=== PATIENT | male | born 1960 | race Caucasian/White ===

== ENCOUNTER → 2018-11-08 | Outpatient (CLI) | payer OTHER ==
[~2018-11-08] MED LIST: ACET325 PO; BIOTIN2500 MCG PO; Bactrim Ds Tab1 EACH PO; CEPH500 PO; CHLO25 PO; CHOL10002 PO; DOCU100 PO; DULO30 PO; FERR325 PO; FERSU300 PO; FOLI1 PO; GABA300 PO; GABA800 PO; HYDACE5 PO; HYDCOR1TOA TOP; IBUP600 PO; IBUP800 PO; IRON150C PO; LISI5 PO; Lisinopril2.5 MG PO; MAGOXI400 PO; MELO7.5 PO; NICO21TP TD; OMEP20ER PO; OXYC30 PO; POTCHL10ER PO; RXCEPH500 PO; THIA100 PO; TRAZ100 PO; WARF5 PO
[2018-11-08 17:58] LABS: BASOPHILS ABSOLUTE AUTO 0.06 K/mm3 (0.00-0.23); BASOPHILS PERCENT AUTO 1 % (0-2); EOSINOPHILS ABSOLUTE AUTO 0.24 K/mm3 (0.00-0.68); EOSINOPHILS PERCENT AUTO 4 % (0-6); Hematocrit 49.9 % (37.0-53.0); Hemoglobin 16.5 g/dL (13.5-17.5); IMMATURE GRAN ABSOLUTE AUTO 0.01 K/mm3 (0.00-0.10); IMMATURE GRAN PERCENT AUTO 0 % (0-1); LYMPHOCYTES ABSOLUTE AUTO 2.19 K/mm3 (0.84-5.20); LYMPHOCYTES PERCENT AUTO 40 % (21-46); MONOCYTES ABSOLUTE AUTO 0.37 K/mm3 (0.16-1.47); MONOCYTES PERCENT AUTO 7 % (4-13); Mean Corpuscular HGB 31.2 pg (26.0-34.0); Mean Corpuscular HGB Conc 33.1 g/dL (31.5-36.5); Mean Corpuscular Volume 94 fL (80-100); Mean Platelet Volume 9.1 fL (9.1-12.4); NEUTROPHILS PERCENT AUTO 48 % (41-73); Platelet Count 184 K/mm3 (150-400); RDW Coefficient Variation 15.2 % (11.7-14.2); RDW Standard Deviation 52.8 fL (35.1-46.3); Red Blood Cell Count 5.29 M/mm3 (4.30-5.90); White Blood Cell Count 5.47 K/mm3 (4.00-11.30)
[2018-11-08 18:19] LABS: Albumin, Blood 3.3 g/dL (3.4-5.0); Anion Gap 7 mmol/L (6-16); Blood Urea Nitrogen 3 mg/dL (8-24); CO2, Blood 34 mmol/L (21-32); Calcium, Blood 8.1 mg/dL (8.5-10.1); Chloride, Blood 105 mmol/L (98-108); Creatinine, Blood 0.74 mg/dL (0.60-1.20); Glomerular Filtration Rate >60 (60-); Glucose, Blood 85 mg/dL (70-99); Phosphorus, Blood 4.2 mg/dL (2.5-4.9); Potassium, Blood 3.3 mmol/L (3.5-5.5); Sodium, Blood 146 mmol/L (136-145)
== END ==
LOC: LAB 13:00 → LAB SHORT 13:00
PROVIDERS: Nurse Practitioner Family
DX: F10.10 Alcohol abuse, uncomplicated (principal)
CPT/HCPCS: 80069; 85025

== ENCOUNTER → 2019-04-11 | Outpatient (CLI) | payer OTHER ==
[~2019-04-11] MED LIST changes: +FAMO20 PO; +THERA M PLUS T1 EACH PO
[2019-04-11 18:18] LABS: Alanine Aminotransfer (ALT/SGP 13 U/L (12-78); Albumin, Blood 2.7 g/dL (3.4-5.0); Albumin/Globulin Ratio 0.6 (0.8-1.8); Alk Phos 114 U/L (50-136); Anion Gap 10 mmol/L (6-16); Aspartate Aminotrans (AST/SGOT 21 U/L (12-37); Bilirubin, Direct 0.2 mg/dL (0.0-0.3); Bilirubin, Indirect 0.5 mg/dL (0.1-0.7); Bilirubin, Total 0.7 mg/dL (0.1-1.0); Blood Urea Nitrogen 7 mg/dL (8-24); CO2, Blood 35 mmol/L (21-32); Calcium, Blood 8.6 mg/dL (8.5-10.1); Chloride, Blood 83 mmol/L (98-108); Globulin, Blood 4.5 g/dL (2.2-4.0); Glomerular Filtration Rate >60 (60-); Glucose, Blood 89 mg/dL (70-99); Phosphorus, Blood 3.1 mg/dL (2.5-4.9); Potassium, Blood 2.8 mmol/L (3.5-5.5); Sodium, Blood 128 mmol/L (136-145); Total Protein, Blood 7.2 g/dL (6.4-8.2)
[2019-04-11 18:29] LABS: BASOPHILS ABSOLUTE AUTO 0.06 K/mm3 (0.00-0.23); BASOPHILS PERCENT AUTO 1 % (0-2); EOSINOPHILS ABSOLUTE AUTO 0.06 K/mm3 (0.00-0.68); EOSINOPHILS PERCENT AUTO 1 % (0-6); Hematocrit 34.3 % (37.0-53.0); Hemoglobin 12.2 g/dL (13.5-17.5); IMMATURE GRAN ABSOLUTE AUTO 0.06 K/mm3 (0.00-0.10); IMMATURE GRAN PERCENT AUTO 1 % (0-1); LYMPHOCYTES ABSOLUTE AUTO 1.94 K/mm3 (0.84-5.20); LYMPHOCYTES PERCENT AUTO 18 % (21-46); MONOCYTES ABSOLUTE AUTO 1.23 K/mm3 (0.16-1.47); MONOCYTES PERCENT AUTO 11 % (4-13); Mean Corpuscular HGB 34.3 pg (26.0-34.0); Mean Corpuscular HGB Conc 35.6 g/dL (31.5-36.5); Mean Corpuscular Volume 96 fL (80-100); NEUTROPHILS ABSOLUTE AUTO 7.67 K/mm3 (1.96-9.15); NEUTROPHILS PERCENT AUTO 70 % (41-73); Platelet Count 309 K/mm3 (150-400); RDW Coefficient Variation 13.5 % (11.7-14.2); RDW Standard Deviation 47.7 fL (35.1-46.3); Red Blood Cell Count 3.56 M/mm3 (4.30-5.90); White Blood Cell Count 11.02 K/mm3 (4.00-11.30)
[2019-04-11 19:03] LABS: Alanine Aminotransfer (ALT/SGP 15 U/L (12-78); Albumin, Blood 2.6 g/dL (3.4-5.0); Albumin/Globulin Ratio 0.5 (0.8-1.8); Alk Phos 117 U/L (50-136); Anion Gap 13 mmol/L (6-16); Aspartate Aminotrans (AST/SGOT 20 U/L (12-37); Bilirubin, Total 0.7 mg/dL (0.1-1.0); Blood Urea Nitrogen 6 mg/dL (8-24); Bun/Creatinine Ratio 8.5 (12.0-20.0); CO2, Blood 31 mmol/L (21-32); Calcium, Blood 8.6 mg/dL (8.5-10.1); Chloride, Blood 85 mmol/L (98-108); Creatinine, Blood 0.71 mg/dL (0.60-1.20); Globulin, Blood 4.8 g/dL (2.2-4.0); Glomerular Filtration Rate >60 (60-); Glucose, Blood 85 mg/dL (70-99); Potassium, Blood 2.8 mmol/L (3.5-5.5); Sodium, Blood 129 mmol/L (136-145); Total Protein, Blood 7.4 g/dL (6.4-8.2)
== END | disposition home or self-care (01) ==
LOC: LAB 11:45 → LAB SHORT 11:45
PROVIDERS: Internal Medicine Nephrology; Nurse Practitioner Family
DX: N18.2 Chronic kidney disease, stage 2 (mild) (principal); D63.1 Anemia in chronic kidney disease; D75.1 Secondary polycythemia; R76.9 Abnormal immunological finding in serum, unspecified; R94.5 Abnormal results of liver function studies; R94.6 Abnormal results of thyroid function studies; B18.2 Chronic viral hepatitis C
CPT/HCPCS: 80053; 82248; 83735; 84100; 85018; 85025

== ENCOUNTER → 2019-04-18 | Outpatient (CLI) | payer OTHER ==
[2019-04-18 18:06] LABS: BASOPHILS ABSOLUTE AUTO 0.05 K/mm3 (0.00-0.23); BASOPHILS PERCENT AUTO 1 % (0-2); EOSINOPHILS PERCENT AUTO 1 % (0-6); Hematocrit 30.3 % (37.0-53.0); Hemoglobin 9.9 g/dL (13.5-17.5); IMMATURE GRAN ABSOLUTE AUTO 0.03 K/mm3 (0.00-0.10); IMMATURE GRAN PERCENT AUTO 0 % (0-1); LYMPHOCYTES ABSOLUTE AUTO 1.58 K/mm3 (0.84-5.20); LYMPHOCYTES PERCENT AUTO 20 % (21-46); MONOCYTES ABSOLUTE AUTO 0.44 K/mm3 (0.16-1.47); MONOCYTES PERCENT AUTO 6 % (4-13); Mean Corpuscular HGB 33.8 pg (26.0-34.0); Mean Corpuscular HGB Conc 32.7 g/dL (31.5-36.5); Mean Platelet Volume 9.9 fL (9.1-12.4); NEUTROPHILS ABSOLUTE AUTO 5.54 K/mm3 (1.96-9.15); NEUTROPHILS PERCENT AUTO 72 % (41-73); Platelet Count 402 K/mm3 (150-400); RDW Coefficient Variation 14.2 % (11.7-14.2); RDW Standard Deviation 54.1 fL (35.1-46.3); Red Blood Cell Count 2.93 M/mm3 (4.30-5.90); White Blood Cell Count 7.74 K/mm3 (4.00-11.30)
[2019-04-18 18:34] LABS: Mean Corpuscular Volume 103 fL (80-100)
[2019-04-18 19:02] LABS: Alanine Aminotransfer (ALT/SGP 21 U/L (12-78); Albumin, Blood 2.8 g/dL (3.4-5.0); Albumin/Globulin Ratio 0.7 (0.8-1.8); Alk Phos 101 U/L (50-136); Anion Gap 6 mmol/L (6-16); Aspartate Aminotrans (AST/SGOT 26 U/L (12-37); Bilirubin, Total 0.3 mg/dL (0.1-1.0); Blood Urea Nitrogen 6 mg/dL (8-24); Bun/Creatinine Ratio 6.8 (12.0-20.0); CO2, Blood 28 mmol/L (21-32); Calcium, Blood 8.6 mg/dL (8.5-10.1); Chloride, Blood 102 mmol/L (98-108); Creatinine, Blood 0.88 mg/dL (0.60-1.20); Globulin, Blood 3.8 g/dL (2.2-4.0); Glomerular Filtration Rate >60 (60-); Glucose, Blood 71 mg/dL (70-99); Potassium, Blood 4.6 mmol/L (3.5-5.5); Sodium, Blood 136 mmol/L (136-145); Total Protein, Blood 6.6 g/dL (6.4-8.2)
== END ==
LOC: LAB 17:51 → LAB SHORT 17:51
PROVIDERS: Nurse Practitioner Family
DX: E55.9 Vitamin D deficiency, unspecified (principal); E87.6 Hypokalemia; D64.9 Anemia, unspecified; I10 Essential (primary) hypertension; E83.42 Hypomagnesemia
CPT/HCPCS: 80053; 85025

== ENCOUNTER 2019-10-08 15:50 | Inpatient (IN) | payer OTHER ==
[~2019-10-08] VITALS: Ht 175.3 cm; Wt 69.7 kg
[2019-10-08 16:08] LABS: Source, Urine Catheter
[2019-10-08 16:10] LABS: Calcium, Ionized (POC) 1.05 mmol/L (1.10-1.46); Chloride (POC) 97 mmol/L (98-108); Creatinine (POC) 1.1 mg/dL (0.8-1.3); Glucose (ISTAT POC) 120 mg/dL (70-99); Hemoglobin (POC) 13.6 g/dL (13.5-17.5); Potassium (POC) 2.9 mmol/L (3.5-5.5); Sodium (POC) 142 mmol/L (135-148); Total CO2 (POC) 21 mmol/L (21-32)
[2019-10-08 16:11] LABS: PCO2 Arterial 68.5 mmHg (35-45); PO2 Arterial 96.4 mmHg (80-100)
[2019-10-08 16:12] LABS: pH Blood Arterial 7.04 (7.35-7.45)
[2019-10-08 16:24] LABS: BASOPHILS ABSOLUTE AUTO 0.08 K/mm3 (0.00-0.23); BASOPHILS PERCENT AUTO 1 % (0-2); EOSINOPHILS ABSOLUTE AUTO 0.02 K/mm3 (0.00-0.68); EOSINOPHILS PERCENT AUTO 0 % (0-6); Hemoglobin 12.9 g/dL (13.5-17.5); IMMATURE GRAN ABSOLUTE AUTO 0.26 K/mm3 (0.00-0.10); IMMATURE GRAN PERCENT AUTO 2 % (0-1); LYMPHOCYTES ABSOLUTE AUTO 0.53 K/mm3 (0.84-5.20); LYMPHOCYTES PERCENT AUTO 3 % (21-46); MONOCYTES ABSOLUTE AUTO 0.53 K/mm3 (0.16-1.47); MONOCYTES PERCENT AUTO 3 % (4-13); Mean Corpuscular HGB 34.2 pg (26.0-34.0); Mean Corpuscular HGB Conc 32.3 g/dL (31.5-36.5); Mean Corpuscular Volume 106 fL (80-100); Mean Platelet Volume 10.7 fL (9.1-12.4); NEUTROPHILS ABSOLUTE AUTO 14.87 K/mm3 (1.96-9.15); NEUTROPHILS PERCENT AUTO 91 % (41-73); Platelet Count 128 K/mm3 (150-400); RDW Coefficient Variation 14.5 % (11.7-14.2); RDW Standard Deviation 56.8 fL (35.1-46.3); Red Blood Cell Count 3.77 M/mm3 (4.30-5.90); White Blood Cell Count 16.29 K/mm3 (4.00-11.30)
[2019-10-08 16:44] LABS: Bilirubin, Urine Neg (Neg); Blood, Urine 5+ (Neg); Glucose Qualitative, Urine Neg (Neg); Ketones, Urine 2+ (Neg); Leukocyte Esterase, Urine Neg (Neg); Nitrite, Urine Neg (Neg); Protein, Urine 3+ (Neg); Urobilinogen, Urine NORM (Normal)
[2019-10-08 16:53] LABS: Appearance, Urine Clear (Clear); Color, Urine Yellow (P-Yellow)
[2019-10-08 16:55] LABS: Alanine Aminotransfer (ALT/SGP 45 U/L (12-78); Albumin, Blood 2.4 g/dL (3.4-5.0); Albumin/Globulin Ratio 0.5 (0.8-1.8); Alk Phos 183 U/L (50-136); Anion Gap 23 mmol/L (6-16); Aspartate Aminotrans (AST/SGOT 253 U/L (12-37); Blood Urea Nitrogen 4 mg/dL (8-24); Bun/Creatinine Ratio 3.8 (12.0-20.0); CO2, Blood 17 mmol/L (21-32); Calcium, Blood 7.9 mg/dL (8.5-10.1); Chloride, Blood 101 mmol/L (98-108); Creatinine, Blood 1.06 mg/dL (0.60-1.20); Ethanol (Alcohol), Blood, Med <3 mg/dL; Globulin, Blood 4.5 g/dL (2.2-4.0); Glomerular Filtration Rate >60 (60-); Glucose, Blood 114 mg/dL (70-99); Magnesium, Blood 1.8 mg/dL (1.6-2.4); Potassium, Blood 2.9 mmol/L (3.5-5.5); Sodium, Blood 141 mmol/L (136-145); Total Protein, Blood 6.9 g/dL (6.4-8.2); Troponin I 0.085 ng/mL (0.000-0.040)
[2019-10-08 16:55] LABS: Amorphous Light (0-Heavy); Bacteria Few /hpf; Squamous Epithelial Cells Few /hpf (Few); White Blood Cells, Urine 0-2 /hpf (0-5)
[2019-10-08 17:00] LABS: U Amphetamine Screen Not Detected; U Barbituate Screen Not Detected; U Benzodiazapine Screen Not Detected; U Cannabinoids Screen DETECTED; U Cocaine Screen Not Detected; U Methadone Screen Not Detected; U Methamphetamine Screen Not Detected; U Opiates Screen Not Detected; U Phencyclidine Screen Not Detected
[2019-10-08 17:01] LABS: U Buprenorphine Screen Not Detected; U Oxycodone Screen Not Detected; U Propoxyphene Screen Not Detected
[2019-10-08 17:28] LABS: PCO2 Arterial 64.5 mmHg (35-45); PO2 Arterial 82.3 mmHg (80-100)
[2019-10-08 17:29] LABS: pH Blood Arterial 7.16 (7.35-7.45)
[2019-10-08 19:54] LABS: Base Excess Venous -4.5 mmol/L; Bicarbonate Venous 19.3 mmol/L (24.0-30.0); PCO2 Venous 56.7 mmHg (38-42); PO2 Venous 34.3 mmHg (38-42); pH Blood Venous 7.22 (7.34-7.37)
--- NOTE | 2019-10-08 21:00 | NUR ---
RECTAL TUBE PLACED
--- NOTE | 2019-10-08 21:00 | NUR ---
PT ARRIVED TO ICU @ 1856, PT INTUBATED, NOT ON SEDATION. VENT SET TO AC 16/450/5/80%, 02 SATURATIONS ABOVE 90%, RR 30-40'S, HR 140'S AND BP 91/76. PT OPENS EYES TO NOXIOUS STIMULI, MOVES ALL EXTREMETIES, REACHES FOR ETT. RESTRAINTS APPLIED AFTER TRANSFER TO ICU BED. SKIN IS COOL TO THE TOUCH. DR BENNETT TO ROOM AT 1915 UPDATED ON PTS STATUS, LABS, CURRENT MEDICATIONS. 40 MEQ POTASSIUM PER TUBE, PRECEDEX DRIP, PROPOFOL, C. DIFF STOOL SPECIMEN AND VBG ORDERED. AT APPROX 1945 BP DECREASED TO 69/51, 1L NS BOLUS AND NEOSYNEPHRINE ORDERED. PT RESPONDED WELL TO FLUIDS, NEOSYNEPHRINE NOT STARTED AT THIS TIME.
--- NOTE | 2019-10-08 23:45 | NUR ---
DR BENNETT TO ROOM @ 2200, UPDATED ON PTS STATUS, BP REMAINS STABLE, PT REMAINS TACHYCARDIC AND TACHYPNEIC, PT BECOMES AGITATED WITH NURSING CARE, 4MG IV ATIVAN X1 ORDERED WITH SOME IMPROVEMENT NOTICED. AT 2230 PROPOFOL WAS INCREASED TO 20, BP DROPPED TO 59/49, DR BENNETT IN ROOM, PROPOFOL ORDERED TO SB, 1L LR BOLUS ORDERED AND NEOSYNEPHRINE INITIATED. CENTRAL LINE TO R FEMORAL PLACED BY DR BENNETT, LEVOPHED ORDERED. ORDERS TO TITRATE NEOSYNEPHRINE DOWN BEFORE LEVO. 50mcg FENTANYL Q2H PRN FOR PAIN/DISCOMFORT/VENT INTOLERENCE ORDERED.
--- NOTE | 2019-10-09 01:00 | NUR ---
PT NOT TOLERATING VENT, COMING OFF OF BED, PULLING AT RESTRAINTS AND REACHING FOR ET TUBE. PRN FENTANYL PROVIDED, PROPOFOL STARTED AT 10.
[2019-10-09 01:07] LABS: Troponin I 0.332 ng/mL (0.000-0.040)
[2019-10-09 04:23] LABS: Hematocrit 33.2 % (37.0-53.0); Hemoglobin 11.2 g/dL (13.5-17.5); Mean Corpuscular HGB 34.9 pg (26.0-34.0); Mean Corpuscular HGB Conc 33.7 g/dL (31.5-36.5); Platelet Count 102 K/mm3 (150-400); RDW Coefficient Variation 14.5 % (11.7-14.2); RDW Standard Deviation 54.4 fL (35.1-46.3); Red Blood Cell Count 3.21 M/mm3 (4.30-5.90); White Blood Cell Count 13.34 K/mm3 (4.00-11.30)
[2019-10-09 04:24] LABS: Mean Corpuscular Volume 103 fL (80-100)
[2019-10-09 04:40] LABS: Alanine Aminotransfer (ALT/SGP 32 U/L (12-78); Albumin, Blood 1.9 g/dL (3.4-5.0); Albumin/Globulin Ratio 0.5 (0.8-1.8); Alk Phos 119 U/L (50-136); Anion Gap 17 mmol/L (6-16); Aspartate Aminotrans (AST/SGOT 135 U/L (12-37); Bilirubin, Total 1.4 mg/dL (0.1-1.0); Blood Urea Nitrogen 3 mg/dL (8-24); Bun/Creatinine Ratio 3.9 (12.0-20.0); CO2, Blood 21 mmol/L (21-32); Calcium, Blood 6.7 mg/dL (8.5-10.1); Chloride, Blood 109 mmol/L (98-108); Creatinine, Blood 0.77 mg/dL (0.60-1.20); Globulin, Blood 3.7 g/dL (2.2-4.0); Glomerular Filtration Rate >60 (60-); Glucose, Blood 53 mg/dL (70-99); Potassium, Blood 2.8 mmol/L (3.5-5.5); Sodium, Blood 147 mmol/L (136-145); Total Protein, Blood 5.6 g/dL (6.4-8.2)
[2019-10-09 05:30] LABS: Adenovirus Not Detected (NOT DETECT); Bordetella pertussis Not Detected (NOT DETECT); Chlamydophila pneumoniae Not Detected (NOT DETECT); Coronavirus 229E Not Detected (NOT DETECT); Coronavirus HKU1 Not Detected (NOT DETECT); Coronavirus NL63 Not Detected (NOT DETECT); Coronavirus OC43 Not Detected (NOT DETECT); Human Metapneumovirus Not Detected (NOT DETECT); Human Rhinovirus/Enterovirus Not Detected (NOT DETECT); Influenza A Not Detected (NOT DETECT); Influenza A/2009-H1 Not Detected (NOT DETECT); Influenza A/H1 Not Detected (NOT DETECT); Influenza A/H3 Not Detected (NOT DETECT); Influenza B Not Detected (NOT DETECT); Mycoplasma pneumoniae Not Detected (NOT DETECT); Parainfluenza Virus 1 Not Detected (NOT DETECT); Parainfluenza Virus 2 Not Detected (NOT DETECT); Parainfluenza Virus 3 Not Detected (NOT DETECT); Parainfluenza Virus 4 Not Detected (NOT DETECT); Respiratory Syncytial Virus Not Detected (NOT DETECT)
--- NOTE | 2019-10-09 05:53 | NUR ---
SHIFT SUMMARY PT REMAINS INTUBATED AND SEDATED, AGITATED AT TIMES, OPENS EYES BUT DOES NOT FOLLOW DIRECTIONS, PERRLA. PT HAS GROSS MOVEMENT OF ALL EXTREMITIES, REACHES FOR ET TUBE AT TIMES. VENT SET TO AC 16/450/5/65%, 02 SATURATIONS MAINTAINED ABOVE 90%, RESPIRATORY RATE DECREASED TO 20-30. HR DECREASED TO 100-110, PT REMAINS ON LEVO AND NEOSYNEPHRINE GTTS (SEE FLOWSHEET). RECTAL TUBE INSERTED THIS SHIFT WITH MINIMAL LIQUID BROWN STOOL, C. DIFF NEGATIVE. PIÑA REMAINS IN PLACE DRAINING CLEAR YELLOW TO ORANGE URINE. EXTREMITIES REMAIN COOL, TMAX THIS SHIFT 100.9. CENTRAL LINE PLACED THIS SHIFT TO R FEMORAL, INFUSING.
--- NOTE | 2019-10-09 06:30 | NUR ---
CALL TO DR BENNETT REGARDING MORNING LABS (POTASSIUM, LACTIC ACID, LIVER ENZYMES), UPDATED ON PRN FENTANYL NEEDS, GTT RATES, AND BP. ADD ON ACETAMINOPHEN AND SALICYLATE LABS ORDERED. 1L LACTATED RINGERS, 20 MEQ POTASSIUM CHLORIDE X1 NOW, 40 MEQ POTASSIUM PT X2 (0700, 1100) ORDERED. ABX ORDERS TO BE REVIEWED.
[2019-10-09 07:00] LABS: Acetaminophen, Random 3.1 ug/mL (10.0-30.0); Salicylate 2.4 mg/dL (2.8-20.0)
[2019-10-09 08:32] LABS: Troponin I 0.538 ng/mL (0.000-0.040)
[2019-10-09 10:37] LABS: Base Excess Venous -4.8 mmol/L; Bicarbonate Venous 20.6 mmol/L (24.0-30.0); PCO2 Venous 37.8 mmHg (38-42); PO2 Venous 55.2 mmHg (38-42); pH Blood Venous 7.35 (7.34-7.37)
--- NOTE | 2019-10-09 13:50 | NUR ---
PT ASSESSED AT 0715 THIS AM. GTT'S REVIEWED W ALEXUS RN AT BEDSIDE. PROPOFOL AT 40MCG, PRECEDEX AT 0.7MCG, NEOSYNEPHRINE AT 40MCG, LEVOPHED AT 20MCG. BICARB GTT AT 75CC/HR. LR BOLUS, IV K+, PT K+, GIVEN PER DR BENNETT ORDERS. ABLE TO TITRATE LEVOPHED DOWN TO 15MCG, AND LALA DOWN TO 20MCG SOON AFTER BOLUS STARTED. DR BENNETT AT BEDSIDE AT 0800. BICARB DC'D AND ALLA TITRATED OFF PER HIS ORDERS. DR BENNETT GIVEN UPDATE INCLUDING LOW BS. 1 AMP D50 IV GIVEN FOR HYPOGLYCEMIA; TUBE FEEDINGS TO START TODAY. TEMP 101.3 THIS AM; SPUTUM SENT. PT POS BLOOD CX; VANCO AND ZOSYN STARTED. TROPONIN ELEVATED;DR NOTIFIED. PT DOES BECOME AGITATED WITH TURNS AND ORAL CARE; MOVES ARMS STRONGLY TOWARDS FACE. DOES NOT OPEN EYES OR FOLLOW DIRECTIONS. ETT ADVANCED 2CM BY RT PER DR BENNETT ORDERS. NOW AT 26CM AT LIP. EEG COMPLETED. WILL CONTINUE TO TITRATE LEVOPHED AND SEDATION DOWN TOLERATED.
--- NOTE | 2019-10-09 14:24 | NUR ---
LEVOPHED DECREASED TO 10MCG. NGT DC'D AND OG TUBE PLACED PER PROTOCOL. VITAL HIGH PROTIEN TUBE FEEDING STARTED AT 25CC/HR
[2019-10-09 16:11] LABS: Base Excess Venous -1.1 mmol/L; Bicarbonate Venous 23.4 mmol/L (24.0-30.0); PCO2 Venous 39.7 mmHg (38-42); PO2 Venous 55.6 mmHg (38-42); pH Blood Venous 7.39 (7.34-7.37)
[2019-10-09 16:23] LABS: Anion Gap 13 mmol/L (6-16); Blood Urea Nitrogen 3 mg/dL (8-24); Bun/Creatinine Ratio 4.7 (12.0-20.0); CO2, Blood 24 mmol/L (21-32); Calcium, Blood 6.9 mg/dL (8.5-10.1); Chloride, Blood 107 mmol/L (98-108); Creatinine, Blood 0.64 mg/dL (0.60-1.20); Glomerular Filtration Rate >60 (60-); Glucose, Blood 106 mg/dL (70-99); Potassium, Blood 3.3 mmol/L (3.5-5.5); Sodium, Blood 144 mmol/L (136-145)
--- NOTE | 2019-10-09 18:27 | NUR ---
LEVOPHED INCREASED FROM 5MCG TO 8MCG FOR SBP 70'S, MAP 59. NSR W RATE 90'S. PT WELL SEDATED, GRIMACES AND MOVES UPPER EXT W ANY NOXIOUS STIMULI. 0 RESIDUAL; APPEARS TO BE TOLERATING TUBE FEEDING WELL. TEMP 98.6, WARM BLANKET GIVEN. SUFFICIENT URINE OUTPUT TODAY. K+ DOWN OG GIVEN PER DR BENNETT ORDERS. LACTIC ACID TENDING DOWN.
--- NOTE | 2019-10-09 20:00 | NUR ---
ASSUMPTION OF CARE ASSUMED CARE OF PT AT 1900. PT INTUBATED AND SEDATED, VENT SET TO AC 16/450/5/25%, 02 SATURATIONS ABOVE 95% AND RESPIRATIONS 25 PER MINUTE, HR NSR 80'S-90'S, MAPS MAINTAINED ABOVE 65 ON 8 OF LEVO, NEOSYNEPHRINE ON SB. PT APPEARS COMFORTABLE BUT BECOMES AGITATED WITH NURSING CARE, PRECEDEX @ 0.7 AND PROPOFOL @ 40, PT CALMS QUICKLY WITH REST. CENTRAL LINE IN PLACE, DRESSING C/D/I, MEDICATIONS INFUSING. RECTAL TUBE IN PLACE, MINIMAL OUTPUT. PIÑA IN PLACE DRAINING ORANGE URINE. OG WITH CONTINUOUS TF @ 25ml/hr, LOW RESIDUALS.
--- NOTE | 2019-10-10 01:00 | NUR ---
NEURO STATUS DURING BEDBATH PT BECAME AGITATED, REACHING FOR ETT, NOT FOLLOWING DIRECTIONS BUT ANSWERING YES/NO QUESTIONS. PT SHOOK HEAD YES WHEN ASKED IF HE WANTED ETT OUT AND IF HE WAS IN PAIN. PT REPORTS THROAT PAIN BUT DENIES ANY OTHER PAIN. PRN FENTANYL PROVIDED.
[2019-10-10 04:49] LABS: Hemoglobin 10.3 g/dL (13.5-17.5); Mean Corpuscular HGB 35.3 pg (26.0-34.0); Mean Corpuscular HGB Conc 34.3 g/dL (31.5-36.5); Mean Corpuscular Volume 103 fL (80-100); Mean Platelet Volume 10.9 fL (9.1-12.4); Platelet Count 99 K/mm3 (150-400); RDW Coefficient Variation 14.7 % (11.7-14.2); RDW Standard Deviation 55.4 fL (35.1-46.3); Red Blood Cell Count 2.92 M/mm3 (4.30-5.90); White Blood Cell Count 13.17 K/mm3 (4.00-11.30)
[2019-10-10 05:10] LABS: Alanine Aminotransfer (ALT/SGP 21 U/L (12-78); Albumin, Blood 2.1 g/dL (3.4-5.0); Albumin/Globulin Ratio 0.7 (0.8-1.8); Alk Phos 73 U/L (50-136); Anion Gap 4 mmol/L (6-16); Aspartate Aminotrans (AST/SGOT 58 U/L (12-37); Blood Urea Nitrogen 5 mg/dL (8-24); Bun/Creatinine Ratio 7.6 (12.0-20.0); CO2, Blood 32 mmol/L (21-32); Calcium, Blood 7.1 mg/dL (8.5-10.1); Chloride, Blood 111 mmol/L (98-108); Creatinine, Blood 0.66 mg/dL (0.60-1.20); Globulin, Blood 3.2 g/dL (2.2-4.0); Glomerular Filtration Rate >60 (60-); Glucose, Blood 121 mg/dL (70-99); Potassium, Blood 3.2 mmol/L (3.5-5.5); Sodium, Blood 147 mmol/L (136-145); Total Protein, Blood 5.3 g/dL (6.4-8.2)
[2019-10-10 05:12] LABS: BAND PERCENT MAN 20 % (0-8); BASOPHILS PERCENT MAN 0 % (0-2); EOSINOPHILS PERCENT MAN 0 % (0-6); LYMPHOCYTES ABSOLUTE MAN 0.39 K/mm3 (0.84-5.20); LYMPHOCYTES PERCENT MAN 3 % (21-46); MONOCYTES ABSOLUTE MAN 0.52 K/mm3 (0.16-1.47); MONOCYTES PERCENT MAN 4 % (4-13); NEUTROPHILS ABSOLUTE MAN 12.24 K/mm3 (1.96-9.15); SEG NEUTROPHILS PERCENT MAN 73 % (41-73); TOTAL CELLS COUNTED 100
[2019-10-10 05:29] LABS: Phosphorus, Blood 0.4 mg/dL (2.5-4.9)
--- NOTE | 2019-10-10 05:40 | NUR ---
CALL TO DR BENNETT REGARDING CRITICAL MORNING LABS (PHOS 0.4, MAG 1.0), UPDATED ON PTS HGB AND TRANSFUSING BAG 1 OF 2 OF PRBC. POTASSIUM 40 MEQ PT X1, POTASSIUM PHOSPHATE 30mmol IV X2, AND MAGNESIUM 4G IV X1 ORDERED.
--- NOTE | 2019-10-10 05:40 | NUR ---
CALL TO DR BENNETT REGARDING CRITICAL MORNING LABS (PHOS 0.4, MAG 1.0), POTASSIUM 40 MEQ PT X1, POTASSIUM PHOSPHATE 30mmol IV X2, AND MAGNESIUM 4G IV X1 ORDERED.
--- NOTE | 2019-10-10 06:41 | NUR ---
SHIFT SUMMARY PT REMAINS INTUBATED AND SEDATED WITH PROPOFOL AND PRECEDEX. VENT SET TO AC 16/450/5/25%, O2 SATURATIONS MAINTAINED ABOVE 90%, RR 20-29, MONITOR SHOWS NSR T/O SHIFT AND BP MAINTAINED WITH LEVO TITRATED DOWN TO 5. TUBE FEEDING INCREASED TO GOAL RATE OF 45ml/hr, 0400 RESIDUALS OF 165ml. PT WAS ABLE TO ANSWER YES/NO QUESTIONS APPROPRIATELY AT ONE POINT DURING SHIFT BUT DOES NOT FOLLOW DIRECTIONS, BITES SUCTION WITH ORAL CARE. MORNING LABS SHOWED CRITICAL ELECTROLYTE LEVELS, REPLACEMENTS ORDERED (SEE PREVIOUS NOTE).
--- NOTE | 2019-10-10 07:26 | NUR ---
ASSUMED CARE: RECEIVED REPORT FROM NOC RN. PT LYING AT 30 DEGREE ANGLE. NO ACUTE DISTRESS NOTED. RR IS NOTED TO BE EVEN AND UNLABORED AT APPROX 12. NUMEROUS DRIPPS RUNNING AT THIS TIME WILL REVIEW ORDERS. LEVOPHED TURNED DOWN TO 4 MCG/MIN DURING REPORT D/T BP AT 120/90. WILL CONTINUE TO MONITOR AND ASSESS FURHTER.
--- NOTE | 2019-10-10 09:37 | NUR ---
WEAN: DR ENG TURNED VENT TO SPONTANIOUS. PT IS FOLLOWING COMMANDS AND ANSWERING QUESTIONS WITH NOD OR SHAKE OF THE HEAD. PROPOFOL TURNED OFF SHORTLY AFTER STARTING. PRECEDEX IS STILL RUNNING AT 0.7 MCG/KG/HR. PT GIVEN THE CALL LIGHT AND INSTRUCTED ON THE USE. PT NODS IN UNDERSTANDING. THIS RN IS OUTSIDE THE ROOM IN VISUAL LINE OF SITE. WILL CONTINUE TO MONITOR AND ASSESS FURHTER.
--- NOTE | 2019-10-10 10:19 | NUR ---
EXTUBATED: REMOVED ET TUBE AT APPROX 1005. PT APPEARS TO BE TOLLERATING WELL. RESTRAINTS REMOVED AND EDUCATED PT ON DRIPS.
--- NOTE | 2019-10-10 12:45 | NUR ---
PO FLUIDS: ASSESSED PT ABLILITY TO HAVE FLUIDS. PT WAS ABLE TO TOLLERATE THE TEASPOONS OF WATER AND THEN WITH THE STRAW. NO WET VOICE OR COUGHING AFTER SWALLOWING.
--- NOTE | 2019-10-10 13:28 | NUR ---
CONFUSION: PT IS ABLE TO STATE HE IS AT [facility], BUT THINKS IT IS 1920. WHEN EXPLAINED IT IS 2019, PT STATES "WOW" AND STATES HE DIDN'T KNOW THAT. PT HAS BEEN SEEN TO BE VERY ANXIOUS IN THE BED MOVING UP AND DOWN, PULLING AT PIÑA AND OTHER CORDS AND TUBES. PT EDUCATED ON THE NEED FOR ALL THE LINES AND IS EASILY REDIRECTABLE. PT PULLED IV IN R ARM AND WAS JUST NOTED TO BE PICKING AT THE DRESSING OF HIS CENTERAL LINE. PRECEDEX STARTED AND DR KRISTA ENG CALLED.
--- NOTE | 2019-10-10 17:00 | NUR ---
CENTRAL LINE DRESSING CHANGE: PT HAS BEEN NOTED A FEW TIMES TO BE PICKING AT HIS CENTRAL LINE DRESSING, BUT HAS BEEN REDIRECTABLE AND APPEARED TO LEAVE IT ALONE IF THE BLANKET WAS OVER IT. AFTER AWHILE PT ENDED UP PICKING AT DRESSING AGAIN AND WAS ABLE TO UNDO THE DRESSING. PT STATES HE THOUGHT HE WAS GOING HOME. WHEN REDIRECTED TO THE NEED TO BE STAYING IN THE HOSPITAL PT STATES HE FORGOT AND NOW REMEMBERS. SUTURES AND LINE WAS NOTED TO BE INTACT AND NO WAS IN POSITION PER INSERSION DOCUMENTATION. STERAL TECHNIQUE USED AND DRESSING WAS CHANGED. PT PLACED IN BUE SOFT WRIST RESTRAINTS, PT TOLLERATED WELL AND STATES HE UNDERSTANDS.
--- NOTE | 2019-10-10 17:17 | NUR ---
SHIFT SUMMARY: PT WAS EXTUBATED TODAY AND HAS TOLLERATED WELL FROM A RESPRATORY STANDPOINT. T/O THE DAY PT HAD TO HAVE THE RESTRAINTS REPLACED D/T FIGGITING, AND PICKING AT CRITICAL LINES AND TUBES NEEDED FOR CRITICAL CARE. PT IS TOLLERATING RESTRAINTS WELL. LEVOPHED WAS TURNED DOWN TO 3 MCG/MIN AT APPROX 1730. NO ACUTE DISTRESS HAS BEEN NOTED T/O THE DAY. WILL CONTINUE TO MONITOR AND REPORT TO ON COMING RN.
[2019-10-10 20:29] LABS: Magnesium, Blood 1.7 mg/dL (1.6-2.4); Phosphorus, Blood 1.1 mg/dL (2.5-4.9)
[2019-10-10 20:44] LABS: Potassium, Blood 4.1 mmol/L (3.5-5.5)
--- NOTE | 2019-10-10 22:37 | NUR ---
ASSUMPTION OF CARE ASSUMED CARE AT 1900. PT ALERT AND ORIENTED X3, PT NOT SURE OF DATE/YEAR, DENIES NAUSEA, PAIN/HEADACHE, ITCHING AND ANXIETY, CIWA OF 2, ON PRECEDEX AT 0.7. MONITOR SHOWS NSR, HR 70'S, BP MAINTAINED ON LEVO @ 3, O2 SATURATIONS 92% ON RA WITH RESPIRATIONS 22-29. PIÑA AND RECTAL TUBE IN PLACE, BOWEL TONES HYPERACTIVE, TOLERATING PO INTAKE. 1999 LAB DRAW SHOWS LOW PHSOPHOROUS, PLAN TO INITIATE ELECTROLYTE PROTOCOL. RECTAL TUBE DC'D @ 2130 AND LEVO TITRATED TO SB.
--- NOTE | 2019-10-10 23:00 | NUR ---
CALL PLACED TO DR BENNETT REGARDING LABS, ORDERS FOR POTASSIUM PHOSPHATE 30mmol X3 IV AND MAGNESIUM 2G X1 IV.
--- NOTE | 2019-10-11 04:23 | NUR ---
CIWA TO ROOM AT 0300, PT APPEARS MORE ANXIOUS AND AGITATED, PT HAD REMOVED ECG LEADS AND ARMBAND, TREMORS FELT IN HANDS CIWA OF 8, PT REDIRECTABLE AND COOPERATIVE. LIBRIUM PROVIDED. AT APPROX 0415 PTS CONFUSION INCREASED, STS HE IS IN [place] AND LIVES ACROSS THE STREET, PULLED BP CUFF OFF ARM AND FIDGETING IN BED, PRECEDEX INCREASED TO 0.4.
[2019-10-11 05:42] LABS: Magnesium, Blood 2.2 mg/dL (1.6-2.4); Phosphorus, Blood 2.4 mg/dL (2.5-4.9)
[2019-10-11 06:07] LABS: Alanine Aminotransfer (ALT/SGP 24 U/L (12-78); Albumin/Globulin Ratio 0.6 (0.8-1.8); Alk Phos 98 U/L (50-136); Anion Gap 6 mmol/L (6-16); Aspartate Aminotrans (AST/SGOT 76 U/L (12-37); Bilirubin, Total 0.7 mg/dL (0.1-1.0); Blood Urea Nitrogen 8 mg/dL (8-24); Bun/Creatinine Ratio 11.3 (12.0-20.0); CO2, Blood 28 mmol/L (21-32); Calcium, Blood 7.2 mg/dL (8.5-10.1); Chloride, Blood 112 mmol/L (98-108); Creatinine, Blood 0.71 mg/dL (0.60-1.20); Globulin, Blood 3.4 g/dL (2.2-4.0); Glomerular Filtration Rate >60 (60-); Glucose, Blood 72 mg/dL (70-99); Potassium, Blood 4.3 mmol/L (3.5-5.5); Sodium, Blood 146 mmol/L (136-145); Total Protein, Blood 5.4 g/dL (6.4-8.2)
--- NOTE | 2019-10-11 06:16 | NUR ---
SHIFT SUMMARY PT REMAINED AWAKE T/O SHIFT, PERIODS OF CONFUSION, CIWA 2-8, LIBRIUM AND PRECIDEX PROVIDED ORDERED/NEEDED. LEVO ON SB FOR APPROX 5 HOURS THIS SHIFT, TITRATED BACK TO 1 @ 0230, NARROWED PULSE PRESSURE NOTED T/O SHIFT. PRECEDEX TITRATED DOWN TO 0.3, BUT TITRATED BACK TO 0.7 ETOH WITHDRAWAL SX WORSENED. PT REQUESTED CIGARETTE AT ONE POINT DURING SHIFT, STS HE USUALLY SMOKES A PACK A DAY, WILL NOTIFY DAY SHIFT OF POSSIBLE NEED FOR NICOTINE PATCH. ELECTROLYTE REPLACEMENT INITIATED THIS SHIFT (SEE PREVIOUS NOTE), MORNING LABS SHOW IMPROVEMENT.
--- NOTE | 2019-10-11 06:30 | NUR ---
PT ATTEMPTED TO GET OUT OF BED, STS HE NEEDS TOILET PAPER TO CLEAN HIMSELF UP. REORIENTED PT ON USE OF CALL LIGHT AND IMPORTANCE OF NOT GETTING OUT OF BED WITHOUT ASSITANCE.
--- NOTE | 2019-10-11 08:37 | NUR ---
ASSUMED CARE NOTE: ASSUMED CARE @ 0700, RECEVIED REPORT FROM [place]OL[place] CHO. PT ON RA WITH SPO2 ABOVE 90%. PT IS ALERT AND ORIENTED TO SELF AND IS ABLE TO FOLLOW DIRECTIONS. NSR WITH HR BETWEEN 80-90 BMP. LEVOPHED @ 1MCG/MIN, GOAL IS TO TURN LEVOPHED OFF. BED AT LOWEST LEVEL, BED ALARM ON. WILL CONTINUE TO MONITOR PT T/O SHIFT.
[2019-10-11 09:54] LABS: Vancomycin, Trough 17.2 ug/mL (5.0-10.0)
[2019-10-11 12:29] LABS: Hematocrit 27.8 % (37.0-53.0); Hemoglobin 9.3 g/dL (13.5-17.5); Mean Corpuscular HGB Conc 33.5 g/dL (31.5-36.5); Mean Corpuscular Volume 105 fL (80-100); NRBC ABSOLUTE 0.02 K/mm3 (0.00-0.02); NRBC Auto 0.2 /100 WBC (0.0-0.2); Platelet Count 89 K/mm3 (150-400); RDW Coefficient Variation 15.6 % (11.7-14.2); RDW Standard Deviation 59.1 fL (35.1-46.3); Red Blood Cell Count 2.66 M/mm3 (4.30-5.90); White Blood Cell Count 8.65 K/mm3 (4.00-11.30)
[2019-10-11 13:01] LABS: BAND PERCENT MAN 6 % (0-8); BASOPHILS PERCENT MAN 0 % (0-2); EOSINOPHILS ABSOLUTE MAN 0.17 K/mm3 (0.00-0.68); EOSINOPHILS PERCENT MAN 2 % (0-6); LYMPHOCYTES ABSOLUTE MAN 0.86 K/mm3 (0.84-5.20); LYMPHOCYTES PERCENT MAN 10 % (21-46); METAMYELOCYTE ABSOLUTE MAN 0.08 K/mm3 (0.00-0.00); METAMYELOCYTE PERCENT MAN 1 % (0-0); MONOCYTES ABSOLUTE MAN 0.17 K/mm3 (0.16-1.47); MONOCYTES PERCENT MAN 2 % (4-13); NEUTROPHILS ABSOLUTE MAN 7.35 K/mm3 (1.96-9.15); SEG NEUTROPHILS PERCENT MAN 79 % (41-73); TOTAL CELLS COUNTED 100
--- NOTE | 2019-10-11 13:41 | NUR ---
UPDATE: PT CONTINUES TO BE ON 0.5MCG/MIN OF LEVOPHED WILL CONTINUE TO TITRATE DOWN, LONG MAP STAYS ABOVE 65. WANG WAS DC'd, PT HAS NOT VOIDED SINCE, WILL MONITOR. PT WAS AMBULATED FROM BED TO CHAIR WITH TWO PERSON MODERATE ASSIST. TAB ALARM IS IN PLACE.
--- NOTE | 2019-10-11 17:48 | NUR ---
SHIFT SUMMARY: PT REMAINS ALERT AND ORIENTED TO SELF. PT IS CONFUSED AND UNABLE TO RECALL RECENTS EVENTS. DURING SHIFT PT BEGAN TO PULL AT HIS FEMORAL CENTERAL LINE. THE DRESSING WAS THEN CHANGED AND BILAT SOFT WRIST RESTRAINTS WERE PLACED. NSR WITH HR BETWEEN 60-90 BPM. LEVOPHED HAS BEEN OFF SINCE 1447, MAP HAS REMAINED ABOVE 65. PT REMAINS ON RA WITH SPO2 ABOVE 90%. PT HAS DENIED ANY PAIN OR SOB DURING SHIFT. PT HAS BEEN GIVEN LIBRIUM PER EMAR AND PRECEDEX IS @ 0.3MCG/KG/HR. PT HAS HAD 1 INCONTINENT URINE VOID SINCE PIÑA WAS TAKEN OUT. PT HAS BEEN USING THE BEDPAN FOR BM'S WELL BSC. PT'S HAS BEEN EATING LESS THAN 50 % OF MEALS. NO S/S OF ASPIRATION NOTED WITH MEALS OR MEDS. UPDATED CAREGIVER ON PT'S CONDITION. BED AT LOWEST LEVEL, CALL LIGHT WITHIN REACH. WILL CONTINUE TO MONITOR PT UNTIL REPORT IS GIVEN TO ONCOMING SHIFT.
--- NOTE | 2019-10-11 19:51 | NUR ---
ASSUMED CARE OF PT AT 1915. REPORT RECEIVED. PT PRESENTS IN BED. YELLS OUT TO NURSE'S DESK. WHEN APPROACHED, PT WAS SAYING HE NEEDED TO GET "ACCROSS THE STREET" PT STATES THAT HE IS IN [place]. REORIENTED PT THAT HE WAS IN [place], AND THAT HE WAS IN THE ICU SECONDARY TO RESPIRATORY DISTRESS, AND ETOH WITHDRAWALS. PT DOES ASK IF HE CAN HAVE RESTRAINTS REMOVED FROM WRISTS. INSTRUCTED PT THAT THE RATIONALE FOR THE RESTRAINTS WAS THAT HE HAS BEEN PULLING AT HIS CENTRAL LINE DRESSING. PT ACKNOWLEDGES. WILL REVIEW CHART AND PLAN OF CARE FOR THIS PT.
--- NOTE | 2019-10-11 23:30 | NUR ---
HAVE INCREASED PRECEDEX FROM 0.3 MCG'S TO 0.5 MCG'S AND GAVE PT DOSE OF 25 MG LIBRIUM. CIWA SCORING HAD INCREASED. THIS IS HELPING TO LOWER CIWA. PT HAS BEEN AGITATED ABOUT HAVING TO HAVE SOFT RESTRAINTS. WHEN EXPLAINED TO PT RATIONALE, HE STATES HE PROMISES NOT TO PULL AT CENTRAL LINE. WHILE TURNING PT, HE REACHES TO HIS CENTRAL LINE AND STARTS TO PICK AT DRESSING. PT INSTRUCTED TO NOT DO THIS. PT THEN STARTS TO HOLD ONTO IV LINES THAT ARE CONNECTED TO CENTRAL LINE. WILL CONTINUE WITH SOFT RESTRAINTS SECONDARY TO THE AFORMENTIONED.
--- NOTE | 2019-10-12 03:00 | NUR ---
PT CURRENTLY SLEEPING. PRECEDEX CONTINUES AT 0.5 MCG'S. PT CONTINUES WITH CONFUSION. NEEDS TO BE REORIENTED TO LOCATION AND WHY HE IS IN THE HOSPITAL. CONTINUES WITH SOFT WRIST RESTRAINTS. HAVE MOVED ALL IV DRIPS TO POWERGLIDE IN HIS ALEJANDRINA. HAVE TRIED TO HIDE CENTRAL LINE TO KEEP PT FROM PULLING. PT DID STATE AT ONE TIME THAT HE FELT THAT THE CENTRAL LINE WAS "SHIT RUNNING DOWN MY LEG". REASSURED PT THAT IT WAS CENTRAL LINE THAT HE WAS FEELING. WILL CONTINUE TO MONITOR.
[2019-10-12 04:43] LABS: BASOPHILS ABSOLUTE AUTO 0.04 K/mm3 (0.00-0.23); BASOPHILS PERCENT AUTO 1 % (0-2); Hematocrit 26.6 % (37.0-53.0); Hemoglobin 8.9 g/dL (13.5-17.5); LYMPHOCYTES ABSOLUTE AUTO 1.26 K/mm3 (0.84-5.20); LYMPHOCYTES PERCENT AUTO 19 % (21-46); MONOCYTES ABSOLUTE AUTO 0.69 K/mm3 (0.16-1.47); MONOCYTES PERCENT AUTO 10 % (4-13); Mean Corpuscular HGB Conc 33.5 g/dL (31.5-36.5); Mean Corpuscular Volume 105 fL (80-100); Mean Platelet Volume 10.8 fL (9.1-12.4); NRBC ABSOLUTE 0.02 K/mm3 (0.00-0.02); NRBC Auto 0.3 /100 WBC (0.0-0.2); Platelet Count 91 K/mm3 (150-400); RDW Coefficient Variation 15.7 % (11.7-14.2); RDW Standard Deviation 60.4 fL (35.1-46.3); Red Blood Cell Count 2.54 M/mm3 (4.30-5.90); White Blood Cell Count 6.82 K/mm3 (4.00-11.30)
[2019-10-12 04:47] LABS: EOSINOPHILS ABSOLUTE AUTO 0.15 K/mm3 (0.00-0.68); EOSINOPHILS PERCENT AUTO 2 % (0-6); IMMATURE GRAN ABSOLUTE AUTO 0.06 K/mm3 (0.00-0.10); IMMATURE GRAN PERCENT AUTO 1 % (0-1); NEUTROPHILS ABSOLUTE AUTO 4.62 K/mm3 (1.96-9.15); NEUTROPHILS PERCENT AUTO 68 % (41-73)
[2019-10-12 05:02] LABS: Alanine Aminotransfer (ALT/SGP 32 U/L (12-78); Albumin, Blood 1.9 g/dL (3.4-5.0); Albumin/Globulin Ratio 0.6 (0.8-1.8); Alk Phos 87 U/L (50-136); Anion Gap 7 mmol/L (6-16); Aspartate Aminotrans (AST/SGOT 88 U/L (12-37); Bilirubin, Total 0.8 mg/dL (0.1-1.0); Blood Urea Nitrogen 7 mg/dL (8-24); Bun/Creatinine Ratio 9.1 (12.0-20.0); CO2, Blood 24 mmol/L (21-32); Chloride, Blood 115 mmol/L (98-108); Creatinine, Blood 0.77 mg/dL (0.60-1.20); Globulin, Blood 3.4 g/dL (2.2-4.0); Glomerular Filtration Rate >60 (60-); Glucose, Blood 66 mg/dL (70-99); Magnesium, Blood 1.7 mg/dL (1.6-2.4); Phosphorus, Blood 3.4 mg/dL (2.5-4.9); Potassium, Blood 4.1 mmol/L (3.5-5.5); Sodium, Blood 146 mmol/L (136-145); Total Protein, Blood 5.3 g/dL (6.4-8.2)
--- NOTE | 2019-10-12 07:06 | NUR ---
HAVE DISCONTINUED SOFT WRIST RESTRAINTS. PT ABLE TO STATE WHERE HE IS, DATE, AND PLACE. PT HAS NOT MADE ANY ATTEMPTS TO PULL AT CENTRAL LINE. OF NOTE: PER LABS, PT'S GLUCOSE LEVEL WAS 66. PT TOOK HIS AM MEDS INCLUDING LIBRIUM WITH APPLE JUICE. PT WILL CONTINUE TO MONITOR PT, AND WILL REPORT OFF TO ONCOMING RN.
--- NOTE | 2019-10-12 10:09 | NUR ---
ASSUMED CARE NOTE: ASSUMED CARE OF PT @ 0700, RECEVIED REPORT FROM ABRAHAM CHO. UPON ENTERING ROOM PT WAS ON 4L OF 02 WITH SPO2 @ 96%. PT WAS THEN TURNED DOWN TO 2L OF O2 WHEN PT AWAKED, HIS SPO2 REAMINS ABOVE 90%. PT IS ALERT AND ORIENTED TO SELF, AND IS ABLE TO FOLLOW DIRECTIONS. PT IS UNABLE TO STATE CURRENT LOCATION/DATE/TIME. PT HAS BEEN USING THE BSC WITH 1/PERSON ASSISTANCE USING THE FWW. GAIT UNSTEADY, HOWEVER IS ABLE TO FOLLOW DIRECTIONS FOR SAFE TRANSFER. PT IS C/O OF STOMACH CRAMPS, HOWEVER HE DENIES NAUSEA. GOAL IS TO TURN OFF PRECEDEX TODAY AND MANAGE ALCHOCOL WITHDRAWAL S/S. BED AT LOWEST LEVEL, CALL LIGHT WITHIN REACH. WILL CONTINUE TO MONITOR PT T/O SHIFT.
--- NOTE | 2019-10-12 18:16 | NUR ---
SHIFT SUMMARY: PT REMAINED ALERT AND ORIENTED TO SELF AND WAS FOLLOWING DIRECTIONS. HOWEVER AT TIMES HE WOULD BECOME ANXIOUS AND WAS TUGGING AT HIS CENTRAL LINE. CENTRAL LINE WAS THEN DC'd. HE WAS ALSO ATTEMPTING TO GET OUT OF BED MULTIPLE TIMES W/O ASSISTANCE. HE HAS BEEN C/O STOMACH CRAMPS/ NAUSEA AND DIARRHEA, WAS MEDICATED PER EMAR. PT HAS NOT BEEN EATING AND IS CURRENTLY ON MECHANICAL SOFT DIET DUE TO NO TEETH/DENTURES. PT WAS UP IN THE CHAIR FOR FOUR HOURS OF THE SHIFT TODAY. PT ALSO USED THE BSC WITH FWW/1 PERSON ASSIST. PT WAS IN NSR WITH HR BETWEEN 60-80'S, FOR THE MAJORITY OF THE SHIFT. HOWEVER, WITH ACTIVITY PT BECOMES TACHY WITH HR IN THE 120'S. PT'S CIWA SCORES RANGE FROM 8-12 THIS SHIFT, HE HAS BEEN MEDICATED PER EMAR. PRECEDEX WAS TURED OFF AT 1130. PT IS NOW ON RA WITH SPO2 ABOVE 90%. WILL CONTINUE TO MONITOR PT UNTIL REPORT IS GIVEN TO ONCOMING SHIFT. BED AT LOWEST LEVEL, BED ALARM ON.
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
--- NOTE | 2019-10-12 21:06 | NUR ---
START OF SHIFT: REPORT FROM PRECILLA RN. PT AWAKE, FLAT AFFECT, SLOW TO RESPOND TO QUESTIONS AND NEEDS. PT ORIENTED TO SELF, THINKS HE'S IN [place], UNSURE OF DATE, COULDN'T STATE THAT HE WAS IN THE HOSPITAL. VSS. PT ON RA SATS 94-96%. PT NOT USING CALL LIGHT WHEN NEEDING UP TO BSC. BED ALARM UTILIZED. PT UP TO COMMODE WITH GAIT BELT AND WALKER TOLERATING WELL WITH ONE-PERSON ASSIST. PT SOMETIMES AGITATED BUT EASILY REDIRECTED. PT STATES, "THANK YOU" FREQUENTLY. CIWA MAX THUS FAR HAS BEEN 4. WILL CONTNUE TO MONITOR.
--- NOTE | 2019-10-13 00:39 | NUR ---
PT PLEASANT AND APPRECIATIVE. PT TRIED TO VOID IN THE EMESIS BAG AND APOLOGIZED. PT UP TO BSC WITH ONE-PERSON ASSIST. PT TALKING FULL SENTENCES AND REQUESTED JELLO. PT ORIENTED TO PLACE, TOWN, MONTH, PRESIDENT, AND TALKED ABOUT WHAT A GREAT DOCTOR DR. MCGILL IS. PT DEMONSTRATED PROPER USE OF CALL LIGHT C/ INSTRUCTION WILL CONTINUE TO MONITOR AND TEACH PRN. PT CURRENTLY WATCHING TV EATING JELLO.
--- NOTE | 2019-10-13 01:29 | NUR ---
O2 APPLIED, 2L VIA N/C FOR DESATS TO 87-90% AND INCREASED HR INTO THE 140'S PRIOR TO GETTING UP OUT OF BED TO THE COMMODE REMAINING AFTER BACK INTO BED. CURRENTLY HR 113-120 SATS 96-98%. WILL CONTINUE TO MONITOR.
[2019-10-13 04:58] LABS: BASOPHILS ABSOLUTE AUTO 0.02 K/mm3 (0.00-0.23); BASOPHILS PERCENT AUTO 0 % (0-2); EOSINOPHILS ABSOLUTE AUTO 0.04 K/mm3 (0.00-0.68); EOSINOPHILS PERCENT AUTO 0 % (0-6); Hematocrit 30.8 % (37.0-53.0); Hemoglobin 10.2 g/dL (13.5-17.5); IMMATURE GRAN ABSOLUTE AUTO 0.17 K/mm3 (0.00-0.10); IMMATURE GRAN PERCENT AUTO 2 % (0-1); LYMPHOCYTES ABSOLUTE AUTO 0.96 K/mm3 (0.84-5.20); LYMPHOCYTES PERCENT AUTO 9 % (21-46); MONOCYTES ABSOLUTE AUTO 1.68 K/mm3 (0.16-1.47); MONOCYTES PERCENT AUTO 15 % (4-13); Mean Corpuscular HGB 34.7 pg (26.0-34.0); Mean Corpuscular HGB Conc 33.1 g/dL (31.5-36.5); Mean Corpuscular Volume 105 fL (80-100); Mean Platelet Volume 10.1 fL (9.1-12.4); NEUTROPHILS ABSOLUTE AUTO 8.04 K/mm3 (1.96-9.15); NEUTROPHILS PERCENT AUTO 74 % (41-73); Platelet Count 150 K/mm3 (150-400); RDW Coefficient Variation 15.3 % (11.7-14.2); RDW Standard Deviation 59.1 fL (35.1-46.3); Red Blood Cell Count 2.94 M/mm3 (4.30-5.90); White Blood Cell Count 10.91 K/mm3 (4.00-11.30)
[2019-10-13 05:18] LABS: Alanine Aminotransfer (ALT/SGP 138 U/L (12-78); Albumin, Blood 2.1 g/dL (3.4-5.0); Albumin/Globulin Ratio 0.5 (0.8-1.8); Alk Phos 181 U/L (50-136); Anion Gap 10 mmol/L (6-16); Aspartate Aminotrans (AST/SGOT 369 U/L (12-37); Bilirubin, Total 3.8 mg/dL (0.1-1.0); Blood Urea Nitrogen 6 mg/dL (8-24); Bun/Creatinine Ratio 8.1 (12.0-20.0); CO2, Blood 24 mmol/L (21-32); Calcium, Blood 7.9 mg/dL (8.5-10.1); Chloride, Blood 111 mmol/L (98-108); Creatinine, Blood 0.74 mg/dL (0.60-1.20); Globulin, Blood 3.9 g/dL (2.2-4.0); Glomerular Filtration Rate >60 (60-); Glucose, Blood 78 mg/dL (70-99); Magnesium, Blood 1.7 mg/dL (1.6-2.4); Phosphorus, Blood 2.9 mg/dL (2.5-4.9); Potassium, Blood 3.5 mmol/L (3.5-5.5); Sodium, Blood 145 mmol/L (136-145)
--- NOTE | 2019-10-13 07:33 | NUR ---
ASSUMED CARE NOTE: ASSUMED CARE OF PT @ 0700, RECEVIED REPORT FROM MARQUIS ALEXIS. PT IS ALERT AND ORIENTED TO SELF, AND IS ABLE TO FOLLOW DIRECTIONS. PT IS ON RA WITH SPO2 @ 90-92 %. SIT WITH HR IN THE 120'S, WITH HR JUMPING INTO THE 140'S WITH MINOR ACTIVITY. PT IS SITTING IN CHAIR READY FOR BREAKFEST. PT IS CONFUSED AND IS STATING THAT HE MAY NEED GLASSESS DUE TO HIM SEEING MONKEYS IN THE UNIT (POINTING AT OUR SATFF). HE DENIES SEEING OR HEARING ANYTHING ELSE. PT CONTINUES TO USE THE BSC AND IS HAVING LOOSE BROWN BOWEL MOVMENTS. HE DENIES ANY PAIN/DISCOMFORT/SOB.
[2019-10-13 09:38] LABS: Vancomycin, Trough 18.8 ug/mL (5.0-10.0)
--- NOTE | 2019-10-13 12:17 | NUR ---
UPDATE NOTE: PT'S LAST CIWA SCORE WAS 11. PT IS HAVING VISUAL HALLUCINATIONS. PT BELIEVES THAT HIS LONG TIME FRIEND IS IN THE ROOM AND THAT HE IS TAKING A NAP. PT IS ANXIOUS AND IS CONTINUING TO GET OUT OF CHAIR W/O ASSISTANCE. PT WAS MEDICATED WITH LIBRIUM PER EMAR. DR. HEARN WAS CALLED, AWATING ORDERS. WILL CONTINUE TO MONITOR PT.
--- NOTE | 2019-10-13 17:48 | NUR ---
SHIFT SUMMARY: NO MAJOR CHANGES T/O SHIFT. PT CONTINUES TO BE CONFUSED, HOWEVER IS REDIRECTABLE. PT HAS BEEN RESTING AND IS CALM. BLOOD PRESSURE STABLE. HR CONTINUES TO BE IN THE 120'S BMP. PT HAS BEEN COUGHING AND HAS BEEN SPITTING HIS SPUTUM ON HIMSELF, THEREFORE PT HAS BEEN PLACED ON HIS SIDE TO PREVENT ASPIRATION. PT CONTINUES TO BE ON RA WITH SP02 ABOVE 90%. HOWEVER PT IS PLACED ON 2L OF O2 VIA NC WHILE ASLEEP DUE TO SPO2 DROP. PT HAS BEEN INCONTINENT FOR THE MAJORITY OF THE SHIFT, DARK YELLOW URINE. PT WAS PLACED ON MEDICAL STATUS. WAITING ON BED ASSIGNMENT. BED AT LOWEST LEVEL, BED ALARM ON. WILL CONTINUE TO MONITOR PT UNTIL REPORT IS GIVEN TO ONCOMING SHIFT.
--- NOTE | 2019-10-13 21:17 | NUR ---
DR. FULLER NOTIFIED: RE: PT'S HR INCREASING 130'S AT REST TO 150'S C/ ACTIVITY. PT ALSO HYPOTENSIVE. PT BEING HELD IN ICU FOR NOW. NS 500 mL FLUID BOLUS.
--- NOTE | 2019-10-13 23:03 | NUR ---
DR. FULLER TO BEDSIDE AND UPDATED ON PT'S INCREASED CONFUSION AND CIWA 16, MEDICATED C/ ATIVAN AND REQUIRING RESTRAINTS TO KEEP FROM PULLING AT IV, CABLES, AND O2 TUBING. VERBAL ORDER GIVEN TO CHANGE PT BACK TO ICU STATUS. BLADDER SCAN PT AND IF OVER 400, STRAIGHT CATH X1, THEN BLADDER SCAN 6 HR LATER.
--- NOTE | 2019-10-14 01:22 | NUR ---
UPDATE: PT SLEEPING. VSS. PT OCCASIONALLY PULLING AT LINES. PT ABLE TO CLEAR ORAL SECRETIONS HIMSELF. PT REMAINING IN RESTRAITS. O2 2L VIA N/C. SEE FLOW SHEET FOR SHIFT VITALS.
--- NOTE | 2019-10-14 03:37 | NUR ---
UPDATE: 0200 PT SLEEPING VSS. PT HAD INCONTINENCE OF URINE SATURATING BRIEFS AND BED. PT AWAKENED, IAN CARE, BRIEF AND LINEN CHANGE PROVIDED. BLADDER SCAN C/ 176 cc IN BLADDER. PT WAS OFFERED TOILETING PRIOR TO LEAVING THE ROOM, PT DENIED. CALL LIGHT WITHIN REACH. WILL CONTINUE TO MONITOR.
--- NOTE | 2019-10-14 06:23 | NUR ---
SHIFT SUMMARY: PT HAS BEEN RESTING QUIETLY THIS AM. VSS. PT WITH TWO INCONTINENCE OF URINE SATURATING BRIEFS. WHEN PT OUT OF RESTRAINTS (DURING BRIEF CHANGES) PT WILL PUT NASAL CANULA IN MOUTH AND CHEW ON TUBING AND WILL FEEL AROUND AND PULL CABLES AND CORDS. PT CONTINUING SLEEPING MOVING AROUND IN BED OCCASIONALLY.
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
--- NOTE | 2019-10-14 08:52 | NUR ---
MD VISIT DR. HEARN IN
--- NOTE | 2019-10-14 08:53 | NUR ---
BEDBATH GIVEN. ATTENDS CHANGED. JUSTINE FROM PHYSICAL THERAPY ASSISTED PT TO RECLINER. TESTED ON RA, BIOX DROPPED TO 88% PLACED BACK ON 2L NC. LS COARSE T/O. SPEECH THERAPY IN. PT MADE NPO FOR ASPIRATION. WILL CONTACT DR. HEARN TO CHANGED PO MEDS TO IV.
--- NOTE | 2019-10-14 13:27 | NUR ---
PATIENT KNOWS THE MONTH, YEAR, PRESIDENT. SAYS HE KNOWS HE'S IN [place], BUT SOME MOMENTS OF CONFUSION TO WHY HE IS IN THE HOSPITAL. HE WANTS TO GO HOME. NPO FOR ASPIRATION. BANANA BAG GIVEN. HR AND BP IMPROVED WITH FLUID.
--- NOTE | 2019-10-14 16:37 | NUR ---
NANCIE HAD BM IN ATTENDS. CLEANED AND ASSISTED TO WHEEL CHAIR. ONE PERSON ASSIST. REPORT GIVEN TO STARLA Olivares RN. PATIENT WILL BE TX'D TO 344 IN WC
--- NOTE | 2019-10-14 16:57 | NUR ---
PATIENT TAKEN TO ROOM 344. STOOD AND PIVOTED TO BED FROM W/C. CALL LIGHT GIVEN. CARE TURNED OVER TO RN AND MEDICAL CASH POSTER
--- NOTE | 2019-10-14 17:13 | NUR ---
PT TO ROOM 1645, DENIES PAIN. AMBULATED TO BED FROM WHEELCHAIR. VERY UNSTEADY. BED IN LOW POSITION, CALL LITE IN REACH, BED ALARM ON FOR SAFETY
--- NOTE | 2019-10-15 03:52 | NUR ---
SHIFT SUMMARY AOX3 WITH INT CONFUSION. LS COARSE, DENIES SOB. NO C/O NAUSEA OR PAIN. 1 ASSIST WITH WALKER TO BATHROOM. BED ALARM. TELE SR 92. POWERGLIDE IN [place] IS SL. NPO. FAILED SWALLOW EVAL 10/14, WILL HAVE ANOTHER ONE DONE TODAY. SUCTION Q4. NO ORAL MEDS. POSSIBLE DC TODAY. VSS ON RA.
[2019-10-15 05:05] LABS: BASOPHILS ABSOLUTE AUTO 0.03 K/mm3 (0.00-0.23); BASOPHILS PERCENT AUTO 0 % (0-2); EOSINOPHILS ABSOLUTE AUTO 0.13 K/mm3 (0.00-0.68); EOSINOPHILS PERCENT AUTO 2 % (0-6); IMMATURE GRAN ABSOLUTE AUTO 0.12 K/mm3 (0.00-0.10); IMMATURE GRAN PERCENT AUTO 2 % (0-1); LYMPHOCYTES ABSOLUTE AUTO 1.07 K/mm3 (0.84-5.20); LYMPHOCYTES PERCENT AUTO 13 % (21-46); MONOCYTES ABSOLUTE AUTO 1.57 K/mm3 (0.16-1.47); MONOCYTES PERCENT AUTO 20 % (4-13); Mean Corpuscular HGB 34.5 pg (26.0-34.0); Mean Corpuscular HGB Conc 33.3 g/dL (31.5-36.5); Mean Corpuscular Volume 103 fL (80-100); Mean Platelet Volume 10.3 fL (9.1-12.4); NEUTROPHILS ABSOLUTE AUTO 5.04 K/mm3 (1.96-9.15); NEUTROPHILS PERCENT AUTO 63 % (41-73); Platelet Count 276 K/mm3 (150-400); RDW Coefficient Variation 15.7 % (11.7-14.2); White Blood Cell Count 7.96 K/mm3 (4.00-11.30)
[2019-10-15 05:26] LABS: Anion Gap 7 mmol/L (6-16); Blood Urea Nitrogen 6 mg/dL (8-24); CO2, Blood 28 mmol/L (21-32); Chloride, Blood 112 mmol/L (98-108); Glomerular Filtration Rate >60 (60-); Glucose, Blood 76 mg/dL (70-99); Sodium, Blood 147 mmol/L (136-145)
[2019-10-15 10:36] LABS: Vancomycin, Trough 27.5 ug/mL (5.0-10.0)
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
--- NOTE | 2019-10-15 14:23 | NUR ---
BACK IN BED AFTER EATING WELL.
--- NOTE | 2019-10-15 15:52 | NUR ---
HE IS ASYMPTOMATIC WITH A BP 82. NOTIFIED. WILL START AN IV BOLUS.
--- NOTE | 2019-10-15 16:51 | NUR ---
HE HAS SBP 109 AFTER 500 ML FLUID BOLUS. HE WAS NEVER SYMPTOMATIC. NO OTHER CHANGES. HE HOPES TO GO HOME TOMORROW OR THE NEXT DAY.
--- NOTE | 2019-10-15 22:15 | NUR ---
METOPROLOL WAS HELD FOR SBP 90'S. SAMIR (GENERAL OFFICE DISPATCHER) WAS ALERTED TO BOLUS RECIEVED ON DAY SHIFT BUT PERSISTENT HYPOTENSION. SHE INTENDED TO REVIEW PT'S CHART BUT NO NEW ORDERS RECIEVED AT THE TIME. WCTM FOR S/S HYPOTENSION.
--- NOTE | 2019-10-16 05:11 | NUR ---
SUMMARY: PT IS A/OX3 W/OCCASIONAL CONFUSION AND IMPULSIVITY OOB TO VOID. BED ALARM ON FOR FALL RISK. HE CALLS APPROPRIATELY AT TIMES BUT IS OFTEN FORGETFULL. 1 ASSIST W/FWW REQUIRED TO USE BATHROOM. HE'S MOSTLY CONTINENT BUT ATTENDS WERE CHANGED FOR INCONTINENCE WHILE ASLEEP. PT TOLERATED PILLS W/WATER AND NO S/S ASPIRATION. TYLENOL WAS RECIEVED FOR TOLERABLE CONTROL OF BILAT LEG PAIN. HE REMAINS NSR AT 80'S BPM PER TELEMETRY. PT'S SBP RANGED FROM 93-116, METOPROLOL WAS HELD AND SAMIR (PROJECT DEVELOPMENT MANAGER) MADE AWARE W/NO NEW ORDERS. PT HAS BEEN ASYMPTOMATIC OF DISTRESS. HE CONT'S TO HAVE OCCASIONALY MOIST PROJECT DEVELOPMENT MANAGER COUGH AND SOME SOB W/EXERTION BUT SPO2 WNL ON RA. NO ACUTE CHANGES, VSS/AFEBRILE. HE'S VERY PLEASANT AND COOPERATIVE W/CARE. WCTM AND REPORT TO DAY RN.
[2019-10-16 06:49] LABS: BASOPHILS ABSOLUTE AUTO 0.02 K/mm3 (0.00-0.23); BASOPHILS PERCENT AUTO 0 % (0-2); EOSINOPHILS ABSOLUTE AUTO 0.09 K/mm3 (0.00-0.68); EOSINOPHILS PERCENT AUTO 1 % (0-6); Hematocrit 26.4 % (37.0-53.0); Hemoglobin 8.8 g/dL (13.5-17.5); IMMATURE GRAN ABSOLUTE AUTO 0.08 K/mm3 (0.00-0.10); IMMATURE GRAN PERCENT AUTO 1 % (0-1); LYMPHOCYTES ABSOLUTE AUTO 0.83 K/mm3 (0.84-5.20); LYMPHOCYTES PERCENT AUTO 11 % (21-46); MONOCYTES ABSOLUTE AUTO 1.09 K/mm3 (0.16-1.47); MONOCYTES PERCENT AUTO 15 % (4-13); Mean Corpuscular HGB Conc 33.3 g/dL (31.5-36.5); Mean Corpuscular Volume 102 fL (80-100); Mean Platelet Volume 10.3 fL (9.1-12.4); NEUTROPHILS ABSOLUTE AUTO 5.27 K/mm3 (1.96-9.15); NEUTROPHILS PERCENT AUTO 71 % (41-73); Platelet Count 308 K/mm3 (150-400); RDW Coefficient Variation 15.9 % (11.7-14.2); RDW Standard Deviation 59.7 fL (35.1-46.3); Red Blood Cell Count 2.59 M/mm3 (4.30-5.90); White Blood Cell Count 7.38 K/mm3 (4.00-11.30)
[2019-10-16 07:04] LABS: Bun/Creatinine Ratio 4.9 (12.0-20.0); Calcium, Blood 7.7 mg/dL (8.5-10.1); Creatinine, Blood 1.63 mg/dL (0.60-1.20); Potassium, Blood 3.1 mmol/L (3.5-5.5)
[2019-10-16] MEDS ORDERED: MELO7.5 PO (10:45)
[2019-10-16] MEDS ORDERED: AMIT25 PO (10:46)
[2019-10-16] MEDS ORDERED: LISI5 PO (10:46)
[2019-10-16] MEDS ORDERED: FOLI1 PO (10:47)
[2019-10-16] MEDS ORDERED: GABA300 PO (10:48)
[2019-10-16] MEDS ORDERED: Prozac20 MG PO (10:52)
[2019-10-16] MEDS ORDERED: ACET325 PO (12:07)
[2019-10-16] MEDS ORDERED: ALBU2.5V5 INH (12:07)
[2019-10-16] MEDS ORDERED: Augmentin 875-1 EACH PO (12:08)
[2019-10-16] MEDS ORDERED: Calcium Carbon500 M1 PO (12:15)
[2019-10-16] MEDS ORDERED: METO25 PO (12:16)
[2019-10-16] MEDS ORDERED: POTCHL20ER PO (12:17)
[2019-10-16] MEDS ORDERED: Florastor250 MG PO (12:18)
[2019-10-16] MEDS ORDERED: ALBU90OI INH (12:19)
--- NOTE | 2019-10-16 16:30 | NUR ---
SHIFT SUMMARY PT AWAKE, RESTING QUIETLY DURING SHIFT REPORT. PT LATER SITTING UP TO EOB, SETTING BED ALARM OFF. PT WANTING TO GO TO [facility]; 1P ASSIST WITH FWW. PT THEN ASSISTED TO CHAIR FOR BREAKFAST. CHAIR ALARM PLACED FOR SAFETY. PT SITTING UP FOR A WHILE IN CHAIR. PT ABLE TO WORK WITH PT/OT; WEAK AND SLIGHTLY UNSTEADY, DOES BETTER WITH WALKER, BUT WALKED WITH P/T IN AMOR WITH GAIT BELT AND SBA. DR LEMUSTRATE HERE TO SEE PT THIS AM; D/C ORDERS PLACED. PT DIRECTED PHONE CALLS TO MAKE FOR HIS CLOTHES AND RIDE HOME. TABULATING CLERK UNABLE TO COME FOR SEVERAL HOURS. IV SITE AND TELE MX D/C'D PER ORDERS. D/C INSTRUCTIONS DISCUSSED WITH PT; VERBALIZED UNDERSTANDING. PT REFUSED TO HAVE H/H COME. CM REPORTED THAT SHE LEFT PT HER CARD AND NUMBER AND COULD LET HIS PCP KNOW IF HE CHANGED HIS MIND AND DECIDED THAT HE WOULD WANT H/H IN THE FUTURE. PT'S CLOTHES BROUGHT IN BY RIDE HOME; PT ABLE TO MOSTLY DRESS HIMSELF. ESCORT ASSISTED PT OUT TO CAR VIA W/C.
== END 2019-10-16 15:55 | disposition home or self-care (01) | DRG 871 ==
LOC: ER 15:50 → ICUW 17:17 → MEDS 10-14 16:43 → ENPENDDIS 10-16 11:09 → MEDS 10-16 15:55
PROVIDERS: Emergency Medicine; Family Medicine; Internal Medicine Critical Care Medicine; Internal Medicine Pulmonary Disease; Pharmacist; ADMIT Internal Medicine
PROC: 02HV33Z Insertion of Infusion Device into Superior Vena Cava, Percutaneous Approach (ICD-10-PCS; principal; 2019-10-08)
PROC: 0BH17EZ Insertion of Endotracheal Airway into Trachea, Via Natural or Artificial Opening (ICD-10-PCS; 2019-10-08)
PROC: 5A1945Z Respiratory Ventilation, 24-96 Consecutive Hours (ICD-10-PCS; 2019-10-08)
PROC: 3E033XZ Introduction of Vasopressor into Peripheral Vein, Percutaneous Approach (ICD-10-PCS; 2019-10-09)
PROC: 3E033XZ Introduction of Vasopressor into Peripheral Vein, Percutaneous Approach (ICD-10-PCS; 2019-10-09)
DX: A41.9 Sepsis, unspecified organism (principal); R65.21 Severe sepsis with septic shock; G92 Toxic encephalopathy; J69.0 Pneumonitis due to inhalation of food and vomit; R64 Cachexia; E87.2 Acidosis; F10.239 Alcohol dependence with withdrawal, unspecified; B19.20 Unspecified viral hepatitis C without hepatic coma; J44.9 Chronic obstructive pulmonary disease, unspecified; M13.0 Polyarthritis, unspecified; F17.210 Nicotine dependence, cigarettes, uncomplicated; Z68.21 Body mass index [BMI] 21.0-21.9, adult; K21.9 Gastro-esophageal reflux disease without esophagitis; E86.0 Dehydration; E87.6 Hypokalemia; Z96.652 Presence of left artificial knee joint; K76.89 Other specified diseases of liver; E88.09 Other disorders of plasma-protein metabolism, not elsewhere classified; E83.51 Hypocalcemia; D69.6 Thrombocytopenia, unspecified; Y90.0 Blood alcohol level of less than 20 mg/100 ml
CPT/HCPCS: 0099U; 31720; 36415; 36556; 36600; 51702; 70450; 71045; 71260; 80047; 80048; 80053; 80202; 81001; 82550; 82803; 82947; 83605; 83735; 83880; 84100; 84132; 84145; 84484; 85014; 85025; 85027; 87040; 87070; 87205; 87493; 90686; 92526; 92610; 93005; 93010; 93306; 94002; 94003; 94640; 94761; 95819; 96365-59; 96368; 96375-59; 97110; 97116; 97162; 97166; 97530; 97535; 99291-25; 99292; A9270; C1751; G0008; G0480; J0456; J0696; J1650; J1953; J2060; J2370; J2405; J2543; J2704; J3010; J3370; J3411; J3475; J3480; J7030; J7040; J7042; J7050; J7060; J7120; J7799; P9046; Q9967

== ENCOUNTER 2020-01-24 19:31 | Inpatient (IN) | payer OTHER ==
[~2020-01-24] VITALS: Ht 167.6 cm; Wt 56.6 kg
[~2020-01-24 19:31] MED LIST changes: +ALBU2.5V5 INH; +ALBU90OI INH; +AMIT25 PO; +Augmentin 875-1 EACH PO; +Calcium Carbon500 M1 PO; +Florastor250 MG PO; +METO25 PO; +POTCHL20ER PO; +Prozac20 MG PO
[2020-01-24 20:38] LABS: BASOPHILS ABSOLUTE AUTO 0.02 K/mm3 (0.00-0.23); BASOPHILS PERCENT AUTO 0 % (0-2); EOSINOPHILS ABSOLUTE AUTO 0.06 K/mm3 (0.00-0.68); EOSINOPHILS PERCENT AUTO 1 % (0-6); Hematocrit 23.4 % (37.0-53.0); Hemoglobin 8.5 g/dL (13.5-17.5); IMMATURE GRAN ABSOLUTE AUTO 0.04 K/mm3 (0.00-0.10); IMMATURE GRAN PERCENT AUTO 1 % (0-1); LYMPHOCYTES ABSOLUTE AUTO 1.37 K/mm3 (0.84-5.20); LYMPHOCYTES PERCENT AUTO 17 % (21-46); MONOCYTES ABSOLUTE AUTO 0.97 K/mm3 (0.16-1.47); MONOCYTES PERCENT AUTO 12 % (4-13); Mean Corpuscular HGB 38.3 pg (26.0-34.0); Mean Corpuscular HGB Conc 36.3 g/dL (31.5-36.5); Mean Corpuscular Volume 105 fL (80-100); Mean Platelet Volume 11.1 fL (9.1-12.4); NEUTROPHILS ABSOLUTE AUTO 5.46 K/mm3 (1.96-9.15); NEUTROPHILS PERCENT AUTO 69 % (41-73); Platelet Count 279 K/mm3 (150-400); RDW Coefficient Variation 16.3 % (11.7-14.2); RDW Standard Deviation 61.7 fL (35.1-46.3); Red Blood Cell Count 2.22 M/mm3 (4.30-5.90); White Blood Cell Count 7.92 K/mm3 (4.00-11.30)
[2020-01-24 20:39] LABS: Alanine Aminotransfer (ALT/SGP 36 U/L (12-78); Albumin, Blood 2.5 g/dL (3.4-5.0); Albumin/Globulin Ratio 0.6 (0.8-1.8); Alk Phos 115 U/L (50-136); Anion Gap 6 mmol/L (6-16); Aspartate Aminotrans (AST/SGOT 81 U/L (12-37); Bilirubin, Total 1.8 mg/dL (0.1-1.0); Blood Urea Nitrogen 18 mg/dL (8-24); Bun/Creatinine Ratio 24.2 (12.0-20.0); CO2, Blood 35 mmol/L (21-32); Calcium, Blood 8.1 mg/dL (8.5-10.1); Chloride, Blood 93 mmol/L (98-108); Creatinine, Blood 0.74 mg/dL (0.60-1.20); Glomerular Filtration Rate >60 (60-); Glucose, Blood 72 mg/dL (70-99); Potassium, Blood 2.1 mmol/L (3.5-5.5); Sodium, Blood 134 mmol/L (136-145); Total Protein, Blood 6.5 g/dL (6.4-8.2)
[2020-01-24 21:21] LABS: Troponin I <0.015 ng/mL (0.000-0.040)
[2020-01-24 23:40] LABS: Source, Urine Voided
[2020-01-24 23:42] LABS: Blood, Urine 2+ (Neg); Glucose Qualitative, Urine Neg (Neg); Ketones, Urine 1+ (Neg); Leukocyte Esterase, Urine 3+ (Neg); Nitrite, Urine Pos (Neg); Protein, Urine 3+ (Neg); Specific Gravity, Urine 1.005 (1.003-1.022); Urobilinogen, Urine 3+ (Normal)
[2020-01-24 23:49] LABS: Appearance, Urine Hazy (Clear); Bacteria Mod /hpf; Bilirubin, Urine 2+ (Neg); Color, Urine Amber (P-Yellow); Red Blood Cells, Urine 0-2 /hpf (0-2); Squamous Epithelial Cells Rare /hpf (Few); White Blood Cells, Urine TNTC /hpf (0-5)
[2020-01-24 23:56] LABS: U Amphetamine Screen Not Detected; U Barbituate Screen Not Detected; U Benzodiazapine Screen Not Detected; U Buprenorphine Screen Not Detected; U Cannabinoids Screen DETECTED; U Cocaine Screen Not Detected; U Methadone Screen Not Detected; U Methamphetamine Screen Not Detected; U Opiates Screen Not Detected; U Oxycodone Screen Not Detected; U Phencyclidine Screen Not Detected; U Propoxyphene Screen Not Detected
[2020-01-25 05:33] LABS: Hematocrit 19.5 % (37.0-53.0); Hemoglobin 6.9 g/dL (13.5-17.5); Mean Corpuscular HGB 37.9 pg (26.0-34.0); Mean Corpuscular HGB Conc 35.4 g/dL (31.5-36.5); Mean Corpuscular Volume 107 fL (80-100); Mean Platelet Volume 11.2 fL (9.1-12.4); Platelet Count 224 K/mm3 (150-400); RDW Coefficient Variation 16.5 % (11.7-14.2); RDW Standard Deviation 64.1 fL (35.1-46.3); Red Blood Cell Count 1.82 M/mm3 (4.30-5.90); White Blood Cell Count 5.58 K/mm3 (4.00-11.30)
--- NOTE | 2020-01-25 05:46 | NUR ---
SHIFT SUMMARY PT EASILY IRRITABLE. WOULD JUST STATE THAT HE ONLY WANTED TO SLEEP. PT DOES REPORT THAT HE HAS BEEN HAVING DIFFICULTIES SLEEPING AT HOME WELL AND ADMITTED TO USING ALCOHOL RECENTLY AFTER WHAT HE REPORTS TO BE YEARS OF SOBRIETY TO HELP SLEEP. PT WAS AWAKE MUCH OF THE NIGHT. APPEARED TO FALL ASLEEP SHORTLY AFTER 0500. POTASSIUM AND MAGNESIUM CRITICALLY LOW AT ADMISSION. 8O MEQ OF IV POTASSIUM WITH ANOTHER 20 MEQ FINISHING UP AT THIS TIME, GIVEN. MAGNESIUM IV GIVEN IN ER BEFORE ADMISSION. AWAITING LAB RESULTS THIS AM. PT HYPOTENSIVE THROUGHOUT THE NIGHT. DR. HAYS AWARE. WITH ORDERS TO CALL IF SYSTOLIC BP DROPS BELOW 90. MULTIPLE BOLUSES OF LR GIVEN WELL THIS EVENING. PT HAS DENIED ANY N/V TONIGHT. PT IS VERY DECONDITIONED. REMAINED IN BED THROUGHOUT THE NIGHT. USED THE URINAL WHILE IN THE BED. TELEMETRY IN PLACE. READING SR IN THE 80'S. NO OTHER ACUTE CHANGES AT THIS TIME. WILL CONTINUE TO MONITOR AND REPORT TO DAY RN.
[2020-01-25 05:47] LABS: Anion Gap 3 mmol/L (6-16); Blood Urea Nitrogen 14 mg/dL (8-24); Bun/Creatinine Ratio 22.2 (12.0-20.0); CO2, Blood 33 mmol/L (21-32); Calcium, Blood 7.4 mg/dL (8.5-10.1); Chloride, Blood 103 mmol/L (98-108); Creatinine, Blood 0.63 mg/dL (0.60-1.20); Glomerular Filtration Rate >60 (60-); Glucose, Blood 77 mg/dL (70-99); Potassium, Blood 3.1 mmol/L (3.5-5.5); Sodium, Blood 139 mmol/L (136-145)
--- NOTE | 2020-01-25 06:15 | NUR ---
LABS HGB CAME DOWN THIS AM FROM 8.5 TO 6.9. ALSO NOTED THAT THERE WAS NO RECHECK ON MAGNESIUM AFTER PT WAS CRITICALLY LOW AT 1.0 IN THE ED LAST NIGHT AT WAS GIVEN A MAG RIDER. NOTIFED DR. RAMIREZ WHO STATED THAT SHE WOULD PUT IN ORDERS.
[2020-01-25 06:57] LABS: Percent Saturation 101.7 % (20.0-50.0)
[2020-01-25 07:13] LABS: Magnesium, Blood 1.5 mg/dL (1.6-2.4)
[2020-01-25 12:24] LABS: Hematocrit 23.2 % (37.0-53.0); Hemoglobin 8.1 g/dL (13.5-17.5)
[2020-01-25 14:29] LABS: Stool Occult Blood Guaiac 1 Neg (Neg)
--- NOTE | 2020-01-25 18:11 | NUR ---
SUMMARY- PT GOT UP TO A WHEELCHAIR AROUND 1300 AND WENT OUTSIDE WITH A FRIEND. PT STEADY ON FEET IN ROOM. HAD A SHOWER THIS PM. HAD 2 LOOSE ALVARADO STOOLS TODAY, STATED THIS IS THE FIRST BM IN ABOUT A WEEK. SENT GUAIC, ALTHOUGH NO VISIBLE BLOOD. PT TOLERATING FOOD AND FLUIDS, NO NAUSEA TODAY. PT HAD A UNIT OF PRBC'S THIS AM. BLOOD PRESSURE CAME UP AND PT STATES HE FEELS BETTER. HAD MG REPLACEMENT WELL. IMPLOVED H/H S/P BLOOD. WILL REPORT TO NOREEN CHO.
--- NOTE | 2020-01-26 05:02 | NUR ---
SHIFT SUMMARY PT IN MUCH BETTER SPIRITS THIS EVENING. PT ONLY GOT IRRITABLE ONCE WHEN HE REQUESTED TO TAKE A WALK DOWNSTAIRS BY HIMSELF. TOLD PT THAT HE WAS NOT STRONG ENOUGH AT THIS TIME TO WALK THAT FAR BY HIMSELF AND THAT HE WOULD NEED SOMEONE TO ACCOMPANY HIM TO LEAVE THE FLOOR. OFFERED TO WALK WITH PT AROUND MEDICAL UNIT BUT PT DECLINED. PT EXPRESSED UNDERSTANDING. OTHERWISE, PT WAS VERY PLEASANT TONIGHT. SLEPT WELL. HAD MORE ENERGY AND A GOOD APPETITE THIS EVENING. COMPLETED ORDERED AMOUNT OF CONTINUOUS FLUIDS AND SALINE LOCKED PT. PT CONTINENT. USED URINAL MOSTLY IN BED. PT CONTINUES TO BY HYPOTENSIVE WITH SYSTOLIC PRESSURES IN THE LOWER 90'S. PT ASYMPTOMATIC AND REPORTS THIS IS "NORMAL" FOR HIM. PT ON RA. TELEMETRY CONTINUES TO READ SINUS RHYTHM IN THE 80'S. NO ACUTE CHANGES THIS SHIFT. WILL CONTINUE TO MONITOR AND REPORT TO DAY RN.
[2020-01-26 05:38] LABS: BASOPHILS ABSOLUTE AUTO 0.02 K/mm3 (0.00-0.23); BASOPHILS PERCENT AUTO 0 % (0-2); EOSINOPHILS ABSOLUTE AUTO 0.08 K/mm3 (0.00-0.68); EOSINOPHILS PERCENT AUTO 2 % (0-6); Hematocrit 21.6 % (37.0-53.0); Hemoglobin 7.7 g/dL (13.5-17.5); IMMATURE GRAN ABSOLUTE AUTO 0.03 K/mm3 (0.00-0.10); IMMATURE GRAN PERCENT AUTO 1 % (0-1); LYMPHOCYTES ABSOLUTE AUTO 1.09 K/mm3 (0.84-5.20); LYMPHOCYTES PERCENT AUTO 21 % (21-46); MONOCYTES ABSOLUTE AUTO 0.62 K/mm3 (0.16-1.47); MONOCYTES PERCENT AUTO 12 % (4-13); Mean Corpuscular HGB 36.5 pg (26.0-34.0); Mean Corpuscular HGB Conc 35.6 g/dL (31.5-36.5); Mean Corpuscular Volume 102 fL (80-100); Mean Platelet Volume 10.5 fL (9.1-12.4); NEUTROPHILS ABSOLUTE AUTO 3.32 K/mm3 (1.96-9.15); NEUTROPHILS PERCENT AUTO 64 % (41-73); Platelet Count 251 K/mm3 (150-400); RDW Coefficient Variation 20.7 % (11.7-14.2); RDW Standard Deviation 74.8 fL (35.1-46.3); Red Blood Cell Count 2.11 M/mm3 (4.30-5.90); White Blood Cell Count 5.16 K/mm3 (4.00-11.30)
[2020-01-26 06:12] LABS: Magnesium, Blood 1.6 mg/dL (1.6-2.4)
[2020-01-26 06:23] LABS: Alanine Aminotransfer (ALT/SGP 23 U/L (12-78); Albumin, Blood 1.8 g/dL (3.4-5.0); Albumin/Globulin Ratio 0.6 (0.8-1.8); Alk Phos 89 U/L (50-136); Anion Gap 6 mmol/L (6-16); Aspartate Aminotrans (AST/SGOT 47 U/L (12-37); Bilirubin, Total 0.7 mg/dL (0.1-1.0); Blood Urea Nitrogen 6 mg/dL (8-24); Bun/Creatinine Ratio 9.9 (12.0-20.0); CO2, Blood 26 mmol/L (21-32); Calcium, Blood 7.1 mg/dL (8.5-10.1); Chloride, Blood 107 mmol/L (98-108); Creatinine, Blood 0.61 mg/dL (0.60-1.20); Globulin, Blood 2.9 g/dL (2.2-4.0); Glomerular Filtration Rate >60 (60-); Glucose, Blood 70 mg/dL (70-99); Potassium, Blood 3.2 mmol/L (3.5-5.5); Sodium, Blood 139 mmol/L (136-145); Total Protein, Blood 4.7 g/dL (6.4-8.2)
[2020-01-26 06:25] LABS: Phosphorus, Blood 0.6 mg/dL (2.5-4.9)
--- NOTE | 2020-01-26 18:15 | NUR ---
SUMMARY- PT ALERT AND ORIENTED- GAINING STRENGTH. STEADY ON FEET. PT HAD A K-PHOS IV REPLACEMENT TODAY. PT WENT OUTSIDE INDEPENDANT IN WHEELCHAIR MULT TIMES TODAY. STEADY ON FEET. REQ FOR IV STOPPED MULT TIMES SO IT TOOK LONGER FOR K-PHOS TO INFUSE. BP BETTER TODAY WITH SBP IN THE 120'S AND PULSE SR 80'S. STARTED PO K PHOS WELL- PLAN TO RECHECK LABS IN THE AM.
[2020-01-27 01:16] LABS: Stool Occult Bld Immuno 1 Negative (NEGATIVE)
[2020-01-27 05:01] LABS: Hematocrit 21.5 % (37.0-53.0); Hemoglobin 7.5 g/dL (13.5-17.5); Mean Corpuscular HGB 35.7 pg (26.0-34.0); Mean Corpuscular HGB Conc 34.9 g/dL (31.5-36.5); Mean Corpuscular Volume 102 fL (80-100); Mean Platelet Volume 10.1 fL (9.1-12.4); Platelet Count 243 K/mm3 (150-400); RDW Coefficient Variation 20.5 % (11.7-14.2); RDW Standard Deviation 76.5 fL (35.1-46.3); White Blood Cell Count 5.52 K/mm3 (4.00-11.30)
[2020-01-27 05:20] LABS: Anion Gap 6 mmol/L (6-16); Blood Urea Nitrogen 4 mg/dL (8-24); Bun/Creatinine Ratio 6.3 (12.0-20.0); CO2, Blood 26 mmol/L (21-32); Calcium, Blood 7.3 mg/dL (8.5-10.1); Chloride, Blood 107 mmol/L (98-108); Creatinine, Blood 0.64 mg/dL (0.60-1.20); Glomerular Filtration Rate >60 (60-); Glucose, Blood 89 mg/dL (70-99); Magnesium, Blood 1.3 mg/dL (1.6-2.4); Phosphorus, Blood 2.1 mg/dL (2.5-4.9); Potassium, Blood 3.4 mmol/L (3.5-5.5); Sodium, Blood 139 mmol/L (136-145)
--- NOTE | 2020-01-27 06:39 | NUR ---
SHIFT SUMMARY PT CONTINUES TO FEEL "BETTER" WITH EACH SHIFT. AMBULATING INDEPENDENTLY IN THE HALLS AND OUTSIDE SO SMOKE. COLOR AND ENERGY APPEAR TO BOTH BE BETTER. PT EATING AND DRINKING WELL. REMAINS ON RA, BREATHING EASY AND UNLABORED. TELEMETRY READING SR 85. NO NAUSEA OR VOMITING THIS EVENING. VITAL SIGNS STABLE. NO ACUTE CHANGES THIS SHIFT. WILL CONTINUE TO MONITOR.
--- NOTE | 2020-01-27 14:52 | NUR ---
Patient agreed to Medical Device Sales Consultant Care on 01/27/2020 for care to be done on 01/28/2020. Patient had no further questions comments or concerns.
--- NOTE | 2020-01-27 17:39 | NUR ---
PATIENT HAS BEEN PLEASANT AND COOPERATIVE WITH STAFF. NO COMPLAINTS OF PAIN OR DISCOMFORT. GOES FOR FREQUEST WALKS. CONTINUES ON ABX WITHOUT S/SX OF ADVERSE REACTIONS NOTED OR REPORTED. NO OTHER CHANGES NOTED OR REPORTED AT THIS TIME. WILL CONTINUE TO MONITOR AND PROVIDE CARE NEEDED.
--- NOTE | 2020-01-28 02:02 | NUR ---
PHYSICIAN COMMUNICATION CONTACTED RECRUITING ASSOCIATE PHYSICIAN, SAMIR HERNANDEZ, AT [facility] TO ASK HER IF SHE WANTED THE PATIENT'S TELE ORDER PUT BACK INTO PLACE BEING THAT HE HAD RECENTLY SUSTAINED A HEART RATE OF 140-160 OVER THE LAST HOUR AND THAT THE PATIENT HAD BEEN OUT SMOKING. THIS NURSE ALSO MENTIONED THAT THE PATIENT'S HGB WAS 7.5 AFTER RECEIVING A UNIT OF PRBC'S ON . THE RECRUITING ASSOCIATE PHYSICIAN SAID THAT NO TELE WAS NEEDED AND THAT THE HGB WOULD BE FOLLOWED UP BY DAY SHIFT PHYSICIANS.
[2020-01-28 04:58] LABS: Hematocrit 22.5 % (37.0-53.0); Hemoglobin 7.6 g/dL (13.5-17.5); Mean Corpuscular HGB 35.7 pg (26.0-34.0); Mean Corpuscular HGB Conc 33.8 g/dL (31.5-36.5); Platelet Count 279 K/mm3 (150-400); RDW Coefficient Variation 20.8 % (11.7-14.2); RDW Standard Deviation 79.7 fL (35.1-46.3); Red Blood Cell Count 2.13 M/mm3 (4.30-5.90); White Blood Cell Count 5.89 K/mm3 (4.00-11.30)
[2020-01-28 04:59] LABS: Mean Corpuscular Volume 106 fL (80-100)
[2020-01-28 05:20] LABS: Albumin, Blood 2.2 g/dL (3.4-5.0); Anion Gap 7 mmol/L (6-16); Blood Urea Nitrogen 3 mg/dL (8-24); Bun/Creatinine Ratio 3.6 (12.0-20.0); CO2, Blood 25 mmol/L (21-32); Calcium, Blood 7.6 mg/dL (8.5-10.1); Chloride, Blood 108 mmol/L (98-108); Creatinine, Blood 0.82 mg/dL (0.60-1.20); Glomerular Filtration Rate >60 (60-); Glucose, Blood 63 mg/dL (70-99); Magnesium, Blood 1.3 mg/dL (1.6-2.4); Phosphorus, Blood 2.1 mg/dL (2.5-4.9); Potassium, Blood 3.7 mmol/L (3.5-5.5); Sodium, Blood 140 mmol/L (136-145)
--- NOTE | 2020-01-28 07:20 | NUR ---
SHIFT SUMMARY PATIENT ALERT AND ORIENTED X 4. DID NOT SLEEP MUCH OVERNIGHT. TELE REPORTED THAT HIS HEART WAS TACHYCARDIC SUSTAINING BETWEEN THE 140'S AND 160'S BUT CAME BACK DOWN TO 104. PATIENT TAKEN OFF TELE PER 'S ORDER AFTER SPEAKING WITH THE MANAGER PLANT PHYSICIAN ABOUT THE PATIENT'S ELEVATED HEAR RATE. BED IN LOWEST POSITION WITH WHEELS LOCKED. CALL LIGHT AND BELONGINGS WITHIN REACH. REPORT GIVEN TO ONCOMING RN.
[2020-01-28] MEDS ORDERED: CIPRO250 MG PO (11:40)
[2020-01-28] MEDS ORDERED: PANT20 (11:41)
[2020-01-28] MEDS ORDERED: PANT20 PO (11:41)
[2020-01-28] MEDS ORDERED: THERA1 EACH PO (11:42)
--- NOTE | 2020-01-28 12:03 | NUR ---
PT DISCHARGED AT 1200 AOX4 AND COOPERATIVE OF CARE. PT HAD ALL PAPERS REVIEWED AND EDUCATIONAL MATERIAL SENT WITH HIM. PT COOPERATIVE OF CARE AND PLEASANT. PT ESCORTED BY FRIEND OUT TO N EXIT VIA WHEELCHAIR WITH PERSONAL BELONGINGS. NO DISTRESS NOTED.
== END 2020-01-28 12:20 | disposition home or self-care (01) | DRG 897 ==
LOC: ER 19:31 → MEDS 19:32 → ENPENDDIS 01-28 10:00 → MEDS 01-28 12:20
PROVIDERS: Emergency Medicine; Family Medicine; Internal Medicine; ADMIT Internal Medicine
DX: F10.20 Alcohol dependence, uncomplicated (principal); N39.0 Urinary tract infection, site not specified; E87.1 Hypo-osmolality and hyponatremia; E87.0 Hyperosmolality and hypernatremia; E87.6 Hypokalemia; E83.42 Hypomagnesemia; D64.9 Anemia, unspecified; E83.39 Other disorders of phosphorus metabolism; J44.9 Chronic obstructive pulmonary disease, unspecified; Z66 Do not resuscitate; Z86.718 Personal history of other venous thrombosis and embolism; Z87.891 Personal history of nicotine dependence
CPT/HCPCS: 36415; 71045; 80048; 80053; 80069; 81001; 82272; 82274; 82607; 82728; 82746; 83540; 83550; 83690; 83735; 84100; 84443; 84484; 85014; 85018; 85025; 85027; 86850; 86900; 86901; 86923; 87077; 87086; 87186; 90686; 93005; 93010; 96361; 96365; 96366; 96367; 96368; 96372; 96375; 96376; 99285-25; C9113; G0008; G0378; J0696; J1650; J2405; J3475; J3480; J7030; J7060; J7120; P9016

== ENCOUNTER 2020-02-02 10:40 | Emergency (ER) | payer OTHER ==
[~2020-02-02] VITALS: Ht 177.8 cm; Wt 63.5 kg
[~2020-02-02 10:40] MED LIST changes: +CIPRO250 MG PO; +PANT20; +PANT20 PO; +THERA1 EACH PO
[2020-02-02 11:03] LABS: BASOPHILS ABSOLUTE AUTO 0.06 K/mm3 (0.00-0.23); BASOPHILS PERCENT AUTO 1 % (0-2); EOSINOPHILS ABSOLUTE AUTO 0.15 K/mm3 (0.00-0.68); EOSINOPHILS PERCENT AUTO 2 % (0-6); Hematocrit 26.1 % (37.0-53.0); Hemoglobin 8.5 g/dL (13.5-17.5); IMMATURE GRAN ABSOLUTE AUTO 0.04 K/mm3 (0.00-0.10); IMMATURE GRAN PERCENT AUTO 1 % (0-1); LYMPHOCYTES ABSOLUTE AUTO 0.95 K/mm3 (0.84-5.20); LYMPHOCYTES PERCENT AUTO 12 % (21-46); MONOCYTES ABSOLUTE AUTO 0.37 K/mm3 (0.16-1.47); MONOCYTES PERCENT AUTO 5 % (4-13); Mean Corpuscular HGB 34.6 pg (26.0-34.0); Mean Corpuscular HGB Conc 32.6 g/dL (31.5-36.5); Mean Corpuscular Volume 106 fL (80-100); Mean Platelet Volume 9.2 fL (9.1-12.4); NEUTROPHILS ABSOLUTE AUTO 6.09 K/mm3 (1.96-9.15); NEUTROPHILS PERCENT AUTO 80 % (41-73); Platelet Count 381 K/mm3 (150-400); RDW Coefficient Variation 18.8 % (11.7-14.2); RDW Standard Deviation 73.7 fL (35.1-46.3); Red Blood Cell Count 2.46 M/mm3 (4.30-5.90); White Blood Cell Count 7.66 K/mm3 (4.00-11.30)
[2020-02-02 11:21] LABS: Alanine Aminotransfer (ALT/SGP 33 U/L (12-78); Albumin, Blood 2.4 g/dL (3.4-5.0); Albumin/Globulin Ratio 0.7 (0.8-1.8); Alk Phos 105 U/L (50-136); Anion Gap 5 mmol/L (6-16); Aspartate Aminotrans (AST/SGOT 45 U/L (12-37); Bilirubin, Total 0.5 mg/dL (0.1-1.0); Blood Urea Nitrogen 3 mg/dL (8-24); Bun/Creatinine Ratio 4.2 (12.0-20.0); CO2, Blood 27 mmol/L (21-32); Calcium, Blood 8.1 mg/dL (8.5-10.1); Chloride, Blood 110 mmol/L (98-108); Creatinine, Blood 0.72 mg/dL (0.60-1.20); Globulin, Blood 3.5 g/dL (2.2-4.0); Glomerular Filtration Rate >60 (60-); Glucose, Blood 75 mg/dL (70-99); Potassium, Blood 3.9 mmol/L (3.5-5.5); Sodium, Blood 142 mmol/L (136-145); Total Protein, Blood 5.9 g/dL (6.4-8.2)
[2020-02-02] MEDS ORDERED: ELIQUIS5 MG PO (17:23)
== END 2020-02-02 17:35 | disposition home or self-care (01) ==
LOC: ER 10:40
PROVIDERS: Emergency Medicine
DX: I82.622 Acute embolism and thrombosis of deep veins of left upper extremity (principal); Z79.899 Other long term (current) drug therapy; J44.9 Chronic obstructive pulmonary disease, unspecified; F17.210 Nicotine dependence, cigarettes, uncomplicated
CPT/HCPCS: 36415; 80053; 83880; 85025; 85379; 93970; 99284-25

== ENCOUNTER 2020-02-11 18:45 | Emergency (ER) | payer OTHER ==
[~2020-02-11] VITALS: Ht 177.8 cm; Wt 74.8 kg
[~2020-02-11 18:45] MED LIST changes: +ELIQUIS5 MG PO
[2020-02-11 19:31] LABS: BASOPHILS ABSOLUTE AUTO 0.06 K/mm3 (0.00-0.23); BASOPHILS PERCENT AUTO 1 % (0-2); EOSINOPHILS ABSOLUTE AUTO 0.14 K/mm3 (0.00-0.68); EOSINOPHILS PERCENT AUTO 3 % (0-6); Hematocrit 31.9 % (37.0-53.0); Hemoglobin 10.6 g/dL (13.5-17.5); IMMATURE GRAN ABSOLUTE AUTO 0.02 K/mm3 (0.00-0.10); IMMATURE GRAN PERCENT AUTO 0 % (0-1); LYMPHOCYTES ABSOLUTE AUTO 1.68 K/mm3 (0.84-5.20); LYMPHOCYTES PERCENT AUTO 35 % (21-46); MONOCYTES ABSOLUTE AUTO 0.33 K/mm3 (0.16-1.47); MONOCYTES PERCENT AUTO 7 % (4-13); Mean Corpuscular HGB 35.1 pg (26.0-34.0); Mean Corpuscular HGB Conc 33.2 g/dL (31.5-36.5); Mean Corpuscular Volume 106 fL (80-100); NEUTROPHILS ABSOLUTE AUTO 2.52 K/mm3 (1.96-9.15); NEUTROPHILS PERCENT AUTO 53 % (41-73); Platelet Count 333 K/mm3 (150-400); RDW Coefficient Variation 17.2 % (11.7-14.2); RDW Standard Deviation 67.1 fL (35.1-46.3); Red Blood Cell Count 3.02 M/mm3 (4.30-5.90); White Blood Cell Count 4.75 K/mm3 (4.00-11.30)
[2020-02-11 19:53] LABS: Troponin I <0.015 ng/mL (0.000-0.040)
[2020-02-11 19:54] LABS: Alanine Aminotransfer (ALT/SGP 38 U/L (12-78); Albumin, Blood 2.6 g/dL (3.4-5.0); Albumin/Globulin Ratio 0.7 (0.8-1.8); Alk Phos 112 U/L (50-136); Anion Gap 4 mmol/L (6-16); Aspartate Aminotrans (AST/SGOT 70 U/L (12-37); Bilirubin, Total 0.5 mg/dL (0.1-1.0); Blood Urea Nitrogen 6 mg/dL (8-24); Bun/Creatinine Ratio 9.9 (12.0-20.0); CO2, Blood 29 mmol/L (21-32); Calcium, Blood 8.1 mg/dL (8.5-10.1); Chloride, Blood 109 mmol/L (98-108); Creatinine, Blood 0.61 mg/dL (0.60-1.20); Globulin, Blood 3.9 g/dL (2.2-4.0); Glomerular Filtration Rate >60 (60-); Glucose, Blood 77 mg/dL (70-99); Potassium, Blood 3.4 mmol/L (3.5-5.5); Sodium, Blood 142 mmol/L (136-145); Total Protein, Blood 6.5 g/dL (6.4-8.2)
== END 2020-02-11 20:53 | disposition left against medical advice (07) ==
LOC: ER 18:45
PROVIDERS: Nurse Practitioner
DX: Z53.21 Procedure and treatment not carried out due to patient leaving prior to being seen by health care provider (principal)
CPT/HCPCS: 36415; 71046; 80053; 83880; 84484; 85025; 93005; 93010; 99283-25

== ENCOUNTER → 2020-04-23 | Outpatient (CLI) | payer OTHER ==
[2020-04-23 21:00] LABS: Anion Gap 10 mmol/L (6-16); Blood Urea Nitrogen 13 mg/dL (8-24); Bun/Creatinine Ratio 20.6 (12.0-20.0); CO2, Blood 24 mmol/L (21-32); Calcium, Blood 8.7 mg/dL (8.5-10.1); Chloride, Blood 104 mmol/L (98-108); Creatinine, Blood 0.63 mg/dL (0.60-1.20); Glomerular Filtration Rate >60 (60-); Glucose, Blood 86 mg/dL (70-99); Potassium, Blood 4.2 mmol/L (3.5-5.5); Sodium, Blood 138 mmol/L (136-145)
== END | disposition home or self-care (01) ==
LOC: LAB 16:48 → LAB SHORT 16:48
PROVIDERS: Nurse Practitioner Family
DX: E87.6 Hypokalemia (principal); B18.2 Chronic viral hepatitis C
CPT/HCPCS: 80048; 86803

== ENCOUNTER → 2020-05-19 | Outpatient (CLI) | payer OTHER ==
[~2020-05-19] MED LIST changes: +AZIT250 PO; +LEVE500 PO; +LISINOPRIL2.5 MG PO; +MULTI VITAMIN1 EACH PO; +NEURONTIN300 MG PO; -PANT20 PO; +PANT40 PO; +PROBIOTIC250 MG PO; +Ventolin/Prove6.7 GM INH; +XARELTO20 M1 PO
[2020-05-19 19:28] LABS: Magnesium, Blood 1.9 mg/dL (1.6-2.4)
[2020-05-19 19:30] LABS: Alanine Aminotransfer (ALT/SGP 21 U/L (12-78); Albumin, Blood 3.4 g/dL (3.4-5.0); Albumin/Globulin Ratio 0.8 (0.8-1.8); Alk Phos 70 U/L (50-136); Anion Gap 8 mmol/L (6-16); Aspartate Aminotrans (AST/SGOT 30 U/L (12-37); Bilirubin, Total 0.2 mg/dL (0.1-1.0); Blood Urea Nitrogen 9 mg/dL (8-24); Bun/Creatinine Ratio 9.5 (12.0-20.0); CO2, Blood 23 mmol/L (21-32); Calcium, Blood 8.7 mg/dL (8.5-10.1); Chloride, Blood 109 mmol/L (98-108); Creatinine, Blood 0.95 mg/dL (0.60-1.20); Globulin, Blood 4.4 g/dL (2.2-4.0); Glomerular Filtration Rate >60 (60-); Glucose, Blood 86 mg/dL (70-99); Potassium, Blood 3.5 mmol/L (3.5-5.5); Sodium, Blood 140 mmol/L (136-145); Total Protein, Blood 7.8 g/dL (6.4-8.2)
== END | disposition home or self-care (01) ==
LOC: LAB SHORT 16:41 → LAB 16:41
PROVIDERS: Nurse Practitioner Family
DX: E87.6 Hypokalemia (principal); E83.42 Hypomagnesemia
CPT/HCPCS: 80053; 83735

== ENCOUNTER 2020-06-30 07:27 | Inpatient (IN) | payer OTHER ==
[~2020-06-30] VITALS: Ht 170.2 cm; Wt 70.8 kg
[~2020-06-30 07:27] MED LIST changes: -AZIT250 PO; -LEVE500 PO; -LISINOPRIL2.5 MG PO; -MULTI VITAMIN1 EACH PO; -NEURONTIN300 MG PO; -PANT40 PO; -PROBIOTIC250 MG PO; -Ventolin/Prove6.7 GM INH; -XARELTO20 M1 PO
[2020-06-30 07:55] LABS: Calcium, Ionized (POC) 1.14 mmol/L (1.10-1.46); Chloride (POC) 103 mmol/L (98-108); Creatinine (POC) 0.8 mg/dL (0.8-1.3); Glucose (ISTAT POC) 83 mg/dL (70-99); Hemoglobin (POC) 13.9 g/dL (13.5-17.5); Potassium (POC) 3.6 mmol/L (3.5-5.5); Sodium (POC) 138 mmol/L (135-148); Total CO2 (POC) 14 mmol/L (21-32)
[2020-06-30 08:10] LABS: Base Excess Venous -17.2 mmol/L; Bicarbonate Venous 12.6 mmol/L (24.0-30.0); PCO2 Venous 32.6 mmHg (38-42); PO2 Venous 192 mmHg (38-42)
[2020-06-30 08:11] LABS: pH Blood Venous 7.16 (7.34-7.37)
[2020-06-30 08:25] LABS: BASOPHILS ABSOLUTE AUTO 0.11 K/mm3 (0.00-0.23); BASOPHILS PERCENT AUTO 1 % (0-2); EOSINOPHILS PERCENT AUTO 0 % (0-6); Hematocrit 40.1 % (37.0-53.0); Hemoglobin 12.6 g/dL (13.5-17.5); IMMATURE GRAN ABSOLUTE AUTO 0.16 K/mm3 (0.00-0.10); IMMATURE GRAN PERCENT AUTO 1 % (0-1); LYMPHOCYTES ABSOLUTE AUTO 0.86 K/mm3 (0.84-5.20); LYMPHOCYTES PERCENT AUTO 4 % (21-46); MONOCYTES ABSOLUTE AUTO 1.41 K/mm3 (0.16-1.47); MONOCYTES PERCENT AUTO 6 % (4-13); Mean Corpuscular HGB 32.1 pg (26.0-34.0); Mean Corpuscular HGB Conc 31.4 g/dL (31.5-36.5); Mean Corpuscular Volume 102 fL (80-100); Mean Platelet Volume 9.4 fL (9.1-12.4); NEUTROPHILS ABSOLUTE AUTO 20.69 K/mm3 (1.96-9.15); NEUTROPHILS PERCENT AUTO 89 % (41-73); Platelet Count 292 K/mm3 (150-400); RDW Coefficient Variation 14.2 % (11.7-14.2); RDW Standard Deviation 53.9 fL (35.1-46.3); Red Blood Cell Count 3.93 M/mm3 (4.30-5.90); White Blood Cell Count 23.23 K/mm3 (4.00-11.30)
[2020-06-30 08:38] LABS: International Normalized Ratio 1.01; Prothrombin Time Results 10.8 Sec (9.7-11.5)
[2020-06-30 08:40] LABS: Magnesium, Blood 1.8 mg/dL (1.6-2.4); Phosphorus, Blood 4.3 mg/dL (2.5-4.9)
[2020-06-30 08:41] LABS: Alanine Aminotransfer (ALT/SGP 20 U/L (12-78); Albumin, Blood 3.3 g/dL (3.4-5.0); Albumin/Globulin Ratio 0.7 (0.8-1.8); Alk Phos 64 U/L (50-136); Anion Gap 19 mmol/L (6-16); Aspartate Aminotrans (AST/SGOT 29 U/L (12-37); Bilirubin, Total 0.5 mg/dL (0.1-1.0); Blood Urea Nitrogen 9 mg/dL (8-24); Bun/Creatinine Ratio 11.5 (12.0-20.0); CO2, Blood 14 mmol/L (21-32); Calcium, Blood 8.6 mg/dL (8.5-10.1); Chloride, Blood 106 mmol/L (98-108); Creatinine, Blood 0.78 mg/dL (0.60-1.20); Ethanol (Alcohol), Blood, Med 33 mg/dL; Globulin, Blood 4.8 g/dL (2.2-4.0); Glomerular Filtration Rate >60 (60-); Glucose, Blood 80 mg/dL (70-99); Potassium, Blood 3.6 mmol/L (3.5-5.5); Sodium, Blood 139 mmol/L (136-145); Total Protein, Blood 8.1 g/dL (6.4-8.2)
[2020-06-30 08:41] LABS: Source, Urine Clean Catch
[2020-06-30 09:00] LABS: Appearance, Urine Clear (Clear); Bilirubin, Urine Neg (Neg); Blood, Urine 2+ (Neg); Color, Urine Yellow (P-Yellow); Glucose Qualitative, Urine Neg (Neg); Ketones, Urine 4+ (Neg); Leukocyte Esterase, Urine Neg (Neg); Nitrite, Urine Neg (Neg); Protein, Urine 2+ (Neg); Specific Gravity, Urine 1.025 (1.003-1.022); Urobilinogen, Urine NORM (Normal)
[2020-06-30 09:18] LABS: Bacteria Many /hpf
[2020-06-30 09:19] LABS: Amorphous Heavy (0-Heavy)
[2020-06-30 09:29] LABS: Granular Casts 0-2 /lpf (0)
[2020-06-30 09:32] LABS: Squamous Epithelial Cells Rare /hpf (Few)
[2020-06-30 09:34] LABS: U Amphetamine Screen Not Detected; U Barbituate Screen Not Detected; U Benzodiazapine Screen Not Detected; U Buprenorphine Screen Not Detected; U Cannabinoids Screen DETECTED; U Cocaine Screen Not Detected; U Methadone Screen Not Detected; U Methamphetamine Screen Not Detected; U Opiates Screen Not Detected; U Oxycodone Screen Not Detected; U Phencyclidine Screen Not Detected; U Propoxyphene Screen Not Detected
[2020-06-30 11:16] LABS: Base Excess Venous -4.2 mmol/L; Bicarbonate Venous 19.8 mmol/L (24.0-30.0); PCO2 Venous 47.3 mmHg (38-42); PO2 Venous 30.4 mmHg (38-42); pH Blood Venous 7.29 (7.34-7.37)
[2020-06-30] MEDS ORDERED: LISINOPRIL2.5 MG PO (12:30)
[2020-06-30] MEDS ORDERED: NEURONTIN300 MG PO (12:30)
[2020-06-30] MEDS ORDERED: XARELTO20 M1 PO (12:31)
[2020-06-30] MEDS ORDERED: PANT40 PO (12:31)
--- NOTE | 2020-06-30 14:29 | NUR ---
ASSUMED CARE RECIEVED REPORT FROM ER NURSE, PT ARRIVED VIA STRETCHER TO ICU 08 AT 1300, HE WAS SLEEPY BUT AWAKE, ALERT AND ORIENTED TO SELF, SURROUNDINGS AND THAT HE HAD A SEIZURE. HE WAS A LITTLE IRRITABLE WHEN AWAKE AND IS WANTING TO GO OUTSIDE AND SMOKE A CIGARETTE. AFTER WE GOT HIM CONNECTED TO OUR MONITORING SYSTEMS HE FELL ASLEEP. HE CAME UP ON ROOM AIR, BUT WHILE ASLEEP HIS O2 SATS DIPPED INTO THE 86-88% RANGE, SO I PLACED HIM ON 2L NC AND THAT BROUGHT HIM UP TO 94%+. HE DENIED CP, SOB, AND NAUSEA. NO SEIZURE ACTIVITY SEEN SINCE ADMISSION TO ICU. CURRENTLY SLEEPING SINCE HE GOT ALL SITUATED IN HIS ROOM. BP AND HR STABLE, SINUS RHYTHM. FEBRILE AT 100.3. PATENT PIÑA DRAINING MIHIR URINE. HE HAD FECES ON HIS SOCKS, AND A LITTLE ON HIS SKIN - WHICH WE CLEANED UP. I TALKED TO EL ON THE PHONE AND HE WAS FINE WITH ME CHANGING THE TIME FOR HIS XARELTO TO THE REGULAR TIME (1800) RATHER THAN AT 1100. BED IS LOW AND LOCKED. CALL LIGHT WITHIN REACH. PT CURRENTLY REMAINS SLEEPING.
--- NOTE | 2020-06-30 16:10 | NUR ---
UPDATE PT REMAINS DROWSY AND NOT WANTING TO TALK TO ME MUCH. HE IS AROUSABLE, BUT FALLS BACK TO SLEEP FAIRLY QUICKLY.
--- NOTE | 2020-06-30 19:00 | NUR ---
ASSUMED CARE ASSUMED CARE OF PATIENT. AWAKE AND ALERT. ORIENTED TO SOLF, PLACE, AND YEAR. THOUGHT IT WAS THE END OF MAY. FOLLOWS COMMANDS. REPOSITIONS SELF IN BED. DENIES C/O PAIN OR DISCOMFORT OTHER THAN DISCOMFORT FROM THE PIÑA. APPEARS IRRITABLE AND ANGRY. DOESN'T REMEMBER HAVING SEIZURES AND DOESN'T UNDERSTAND WHY HE HAS TO STAY IN THE HOSPITAL. BED ALARM IS ON. LR INFUSING @ 75CC/HR. DENIES NAUSEA. MILD TREMORS NOTED IN HANDS WHEN HELD OUT. PT DENIES C/O FEELING ANXIOUS OR AGITATED. MONITOR SHOWS NSR, RATE 70s. BP STABLE. RESPIRATIONS SHALLOW, BUT EVEN AND UNLABORED. DENIES SOB. SEE SHIFT ASSESSMENT FOR FULL ASSESSMENT.
--- NOTE | 2020-06-30 20:11 | NUR ---
SHIFT SUMMARY NO SEIZURE ACTIVTY NOTED SINCE ADMISSION. HE IS DROWSY, PROBABLY POST-ICTAL/SEDATED FROM ATIVAN, BUT WHEN AWAKE HE IS ORIENTED TO SELF AND SURROUNDINGS. HE FORGOT HE HAD A FEW SEIZURES - BUT WE DISCUSSED WHAT HAPPENED AND WHAT TO EXPECT COMING UP. HE IS CONCERNED ABOUT HIS PETS, AND HE WANTS US TO CONTACT HIS RETAIL VISUAL MERCHANDISER NOREEN MAHAN NURSE IS AWARE. HIS VITALS ARE STABLE, HOWEVER, WHEN HE SLEEPS HIS O2 SATS DIP INTO THE 80's, SO HE IS ON 2L NC FOR SUPPORT. HE HAS SLEPT ALMOST HIS WHOLE TIME IN ICU FOR ME. HE HAS HAD TWO EPISODES OF DEFICATION. SECOND TIME WAS MUCH MORE AND GOT ON HIS FEET, AND HE HAD IT ON HIS HANDS. HE IS A LITTLE "OFF" HE HAD SOME PERCULIAR BEHAVIORS AND WASNT ABLE TO EXPLAIN WHY HE WAS MESSING WITH HIS ATTENDS/FECES. WE GAVE HIM A COMPLETE BED CHANGE AND REITERATED THE IMPORTANCE OF THE CALL LIGHT. ONE TIME HE TRIED TO GET OUT OF BED (AFTER BEING INSTRUCTED NOT TO GET UP) THE BED ALARM WENT OFF AND I GOT TO HIM BEFORE HE STOOD UP. HE JUST WANTED TISSUE. AGAIN, WE WENT OVER THE IMPORTANCE OF USING THE CALL LIGHT FOR THE TIME BEING. EDUCATION REGARDING HIS SAFETY WAS GIVEN. PT HAS PIÑA, AND HAD 1400 ML OF URINE OUTPUT. HE HAD ~700 ML OF IVF INPUT. THE BANANA BAG FINISHED INFUSING, AND THE LR AT 75 ML/HR WAS STARTED. HE SWALLOWED FINE, AND TOOK HIS EVENING XARELTO DOSE JUST FINE. NO S/S OF ASPIRATION. NO VOICE CHANGES, NO COUGHING, ABLE TO HOLD FOCUS FOR 15 MINUTES, UP 90 DEGREES, ETC... BED LOW AND LOCKED. CALL LIGHT WITHIN REACH. PHYSICAL THERAPY WILL DO THEIR EVALUATION TOMORROW.
[2020-07-01 03:52] LABS: BASOPHILS ABSOLUTE AUTO 0.05 K/mm3 (0.00-0.23); BASOPHILS PERCENT AUTO 0 % (0-2); EOSINOPHILS ABSOLUTE AUTO 0.06 K/mm3 (0.00-0.68); EOSINOPHILS PERCENT AUTO 0 % (0-6); Hematocrit 34.6 % (37.0-53.0); Hemoglobin 11.4 g/dL (13.5-17.5); IMMATURE GRAN ABSOLUTE AUTO 0.07 K/mm3 (0.00-0.10); IMMATURE GRAN PERCENT AUTO 1 % (0-1); LYMPHOCYTES ABSOLUTE AUTO 1.13 K/mm3 (0.84-5.20); LYMPHOCYTES PERCENT AUTO 8 % (21-46); MONOCYTES ABSOLUTE AUTO 1.08 K/mm3 (0.16-1.47); MONOCYTES PERCENT AUTO 7 % (4-13); Mean Corpuscular HGB 32.1 pg (26.0-34.0); Mean Corpuscular HGB Conc 32.9 g/dL (31.5-36.5); Mean Corpuscular Volume 98 fL (80-100); Mean Platelet Volume 9.4 fL (9.1-12.4); NEUTROPHILS ABSOLUTE AUTO 12.59 K/mm3 (1.96-9.15); NEUTROPHILS PERCENT AUTO 84 % (41-73); Platelet Count 228 K/mm3 (150-400); Red Blood Cell Count 3.55 M/mm3 (4.30-5.90); White Blood Cell Count 14.98 K/mm3 (4.00-11.30)
[2020-07-01 04:13] LABS: Alanine Aminotransfer (ALT/SGP 16 U/L (12-78); Albumin, Blood 2.5 g/dL (3.4-5.0); Albumin/Globulin Ratio 0.6 (0.8-1.8); Alk Phos 47 U/L (50-136); Anion Gap 5 mmol/L (6-16); Aspartate Aminotrans (AST/SGOT 17 U/L (12-37); Bilirubin, Total 0.5 mg/dL (0.1-1.0); Blood Urea Nitrogen 6 mg/dL (8-24); Bun/Creatinine Ratio 8.8 (12.0-20.0); CO2, Blood 27 mmol/L (21-32); Calcium, Blood 8.3 mg/dL (8.5-10.1); Chloride, Blood 108 mmol/L (98-108); Creatinine, Blood 0.68 mg/dL (0.60-1.20); Glomerular Filtration Rate >60 (60-); Glucose, Blood 78 mg/dL (70-99); Potassium, Blood 3.6 mmol/L (3.5-5.5); Sodium, Blood 140 mmol/L (136-145); Total Protein, Blood 6.5 g/dL (6.4-8.2)
--- NOTE | 2020-07-01 06:20 | NUR ---
SHIFT SUMMARY NO ACUTE CHANGES DURING NOC. SLEPT WHEN UNDISTURBED AND ROUSES EASILY TO STIMULI. DENIES C/O PAIN OR DISCOMFORT. REMAINS ORIENTED X 2. CIWA 5-8. NO SEIZURE ACTIVITY NOTED. LR INFUSING @ 75CC/HR PER ORDER. MONITOR SHOWS NSR. BP STABLE. REMAINS ON RA- SATS STABLE. RESPIRATIONS SHALLOW, BUT EVEN AND UNLABORED. PIÑA PATENT AND DRAINING MIHIR URINE. TOLERATING DIET. WILL REPORT TO ONCOMING RN WHEN AVAILABLE.
--- NOTE | 2020-07-01 07:45 | NUR ---
AM NOTE... ASSUMED CARE OF PT APROX 0700, PT IS A&Ox4 WITH MOMENTS OF CONFUSION, UNABLE TO STATE THE DATE BUT KNEW THE YEAR. PT'S VS ARE STABLE AT THIS TIME. L/S COARSE ON THE LEFT SIDE FINE CRACKLES HEARD ON THE RIGHT. BT PRESENT BUT HYPOACTIVE, ABD IS SOFT AND NONTENDER TO PALP. PT HAD 1 EPISODE OF INCONT OF THE BOWELS, PT STATES THIS IS NEW. PIÑA IS PATENT AND DRAINING CLEAR YELLOW URINE TO GRAVITY. NO EDEMA NOTED ON ASSESSMENT. PT IS VERY ADAMANT ABOUT GOING HOME, HE STATES THAT HE IS NOT INTRESTED IN STOPPING DRINKING. PROVIDER IS AWARE THE PT MAY GO AMA. CALL LIGHT IN REACH WILL CONTINUE TO MONITOR.
--- NOTE | 2020-07-01 11:46 | NUR ---
PT UDPATE... PT CONTINUES TO STATE HE WANTS TO GO HOME. PT EDUCATED ON THE RISKS OF LEAVING AMA, PT VERBALIZED HIS UNDERSTANDING. PT HAS ASKED THIS RN TO CONTACT HIS CAREGIVER BY PHONE, WHILE ON THE PHONE THE CAREGIVER TOLD THIS RN THAT THE PT IS "GOING HOME TO AN EVICTION FROM HIS HOUSE BECAUSE OF THE TWEEKER LIVING OFF OF HIM." THE CAREGIVER ALSO TOLD THIS RN THAT THE PT HAD A THERMAL SPRAY OPERATOR WITH [employer]. THIS RN CALLED THE THERMAL SPRAY OPERATOR AND LEFT A MESSAGE. WILL CONTINUE TO MONITOR.
[2020-07-01 14:30] LABS: Base Excess Venous 2.1 mmol/L; Bicarbonate Venous 26.3 mmol/L (24.0-30.0); PCO2 Venous 37.6 mmHg (38-42); PO2 Venous 111 mmHg (38-42); pH Blood Venous 7.45 (7.34-7.37)
--- NOTE | 2020-07-01 17:53 | NUR ---
Initial spiritual care note: Mr. Smith expressed gratitude for compassionate care by [facility] staff. He denied needs/concerns. He feels well-loved and supported by friends and family. He is hopeful for recovery. Prayer and encouragement provided. I will remain available.
--- NOTE | 2020-07-01 18:06 | NUR ---
SHIFT SUMMARY... NO ACUTE NEGATIVE CHANGES NOTED THIS SHIFT. PT'S VS HAVE BEEN STABLE CIWA HAS BEEN BETWEEN 5-8. PT HAS BEEN AGREEABLE TO STAY AT THIS TIME. THIS RN SPOKE WITH THE PT'S ELECTROENCEPHALOGRAPH TECHNOLOGIST AT [facility]. SHE STATED THAT THE PT IS ABOUT TO BE EVICTED FROM HIS HOME DUE TO HIS EX COMING TO LIVE WITH HIM AND REFUSING TO LEAVE. PT HAS HAD MULITPLE EPISODES OF SMALL/SMEAR STOOLS, PT HAS BEEN UP TO THE BSC x2 THIS SHIFT, AND WAS UP IN THE CHAIR x2 WELL. PT HAS BECOME SLIGHTLY MORE UNSTEADY ON HIS FEET AND FORGETS HOW TO USE THE CALL LIGHT, BED ALARM IS ON. PT HAS BEEN PLEASENT AND COOPERATIVE T/O THE SHIFT. CALL LIGHT IN REACH, BED ALARM IS ON WILL CONTINUE TO MONITOR UNTIL REPORT IS GIVEN TO ONCOMING RN.
--- NOTE | 2020-07-01 19:00 | NUR ---
ASSUMED CARE ASSUMED CARE OF PATIENT. SLEEPING WHEN UNDISTURBED. ROUSES EASILY TO STIMULI. DENIES C/O PAIN OR DISCOMFORT. ORIENTED EXCEPT TO DAY OF MONTH AND TIME OF DAY. COOPERATIVE WITH CARE. REPOSITIONS SELF IN BED. BED ALARM IS ON. RESPIRATIONS EVEN AND UNLABORED. DENIES SOB/DYSPNEA. INFREQUENT NON-PRODUCTIVE COUGH NOTED. RA SATS STABLE. MONITOR SHOWS NSR, RATE 70s. BP STABLE. DENIES NAUSEA. CONTINUES WITH POOR APPETITE. PIÑA PATENT AND DRAINING YELLOW URINE. LR INFUSING AT 75CC/HR PER ORDER. SEE SHIFT ASSESSMENT FOR FULL ASSESSMENT.
[2020-07-02 03:29] LABS: BASOPHILS ABSOLUTE AUTO 0.04 K/mm3 (0.00-0.23); BASOPHILS PERCENT AUTO 1 % (0-2); EOSINOPHILS ABSOLUTE AUTO 0.21 K/mm3 (0.00-0.68); EOSINOPHILS PERCENT AUTO 3 % (0-6); Hematocrit 33.1 % (37.0-53.0); IMMATURE GRAN ABSOLUTE AUTO 0.02 K/mm3 (0.00-0.10); IMMATURE GRAN PERCENT AUTO 0 % (0-1); LYMPHOCYTES ABSOLUTE AUTO 1.39 K/mm3 (0.84-5.20); LYMPHOCYTES PERCENT AUTO 17 % (21-46); MONOCYTES ABSOLUTE AUTO 0.53 K/mm3 (0.16-1.47); MONOCYTES PERCENT AUTO 7 % (4-13); Mean Corpuscular HGB 32.3 pg (26.0-34.0); Mean Corpuscular HGB Conc 33.2 g/dL (31.5-36.5); Mean Corpuscular Volume 97 fL (80-100); Mean Platelet Volume 9.4 fL (9.1-12.4); NEUTROPHILS ABSOLUTE AUTO 5.83 K/mm3 (1.96-9.15); NEUTROPHILS PERCENT AUTO 73 % (41-73); Platelet Count 214 K/mm3 (150-400); RDW Coefficient Variation 14.1 % (11.7-14.2); RDW Standard Deviation 50.3 fL (35.1-46.3); Red Blood Cell Count 3.41 M/mm3 (4.30-5.90); White Blood Cell Count 8.02 K/mm3 (4.00-11.30)
[2020-07-02 03:44] LABS: Albumin, Blood 2.4 g/dL (3.4-5.0); Anion Gap 5 mmol/L (6-16); Blood Urea Nitrogen 5 mg/dL (8-24); Bun/Creatinine Ratio 7.4 (12.0-20.0); CO2, Blood 28 mmol/L (21-32); Calcium, Blood 8.5 mg/dL (8.5-10.1); Chloride, Blood 110 mmol/L (98-108); Creatinine, Blood 0.68 mg/dL (0.60-1.20); Glomerular Filtration Rate >60 (60-); Glucose, Blood 82 mg/dL (70-99); Phosphorus, Blood 2.2 mg/dL (2.5-4.9); Potassium, Blood 3.3 mmol/L (3.5-5.5); Sodium, Blood 143 mmol/L (136-145)
--- NOTE | 2020-07-02 06:11 | NUR ---
SHIFT SUMMARY NO ACUTE CHANGES DURING NOC. SLEPT WHEN UNDISTURBED. ROUSES TO VERBAL STIMULI. CIWA 5-8. MEDICATED WITH LIBRIUM PO X 1 DOSE. DENIES C/O PAIN OR DISCOMFORT. REPOSITIONS SELF IN BED. NO SEIZUIRE ACTIVITY NOTED. VSS T/O NOC. TOLERATING DIET. PIÑA PATENT AND DRAINING YELLOW URINE. LR INFUSING AT 75CC/HR PER ORDER. RESPIRATIONS EVEN AND UNLABORED. RA SATS STABLE. WILL REPORT TO ONCOMING RN WHEN AVAILABLE.
--- NOTE | 2020-07-02 08:47 | NUR ---
PT AWAKE AND ALERT THIS AM. PT DENIES ALL COMPLAINTS. PT W GOOD APPETITE, WISHES TO GO HOME. CIWA 3. PLAN: MOBILIZE. DR RAMIREZ IN TO SEE PT. PT NOW MED NO TELE. WILL DC WANG MURPHY.
--- NOTE | 2020-07-02 12:03 | NUR ---
PT OOB TO SHOWER W SURVEILLANCE DIRECTOR ASSIST. PT MORE STEADY ON FEET. ABLE TO SHOWER SELF. WANG DC'D, PT ABLE TO VOID TO URINAL W/O DIFF. PT EATING LUNCH NOW W/O COMPLAINTS. CIWA 0
[2020-07-02] MEDS ORDERED: AZIT250 PO (13:21)
[2020-07-02] MEDS ORDERED: LEVE500 PO (13:22)
[2020-07-02] MEDS ORDERED: PROBIOTIC250 MG PO (13:23)
[2020-07-02] MEDS ORDERED: CEPH500 PO (13:25)
[2020-07-02] MEDS ORDERED: Ventolin/Prove6.7 GM INH (13:25)
[2020-07-02] MEDS ORDERED: MULTI VITAMIN1 EACH PO (13:27)
--- NOTE | 2020-07-02 14:03 | NUR ---
NEW ORDERS TO DC PT HOME AT [address] RAMIREZ. PT'S CAREGIVER CONTACTED PER PT REQUEST. PT HAS HOME TO GO TO FOR NOW PER CAREGIVER, ALTHOUGH EVICTION PROCESS HAS BEEN STARTED PER CAREGIVER. PT VERBALIZES HAPPINESS TO BE DC'D HOME. RX'D FAXED TO [facility] AND CALLED FOR VARIFICATION. [facility] CALLED FOR RIDE. ATTEMPTED TO MAKE F/U APPOINTMENT W PCP; NO ANSWER. PT UNDERSTANDS HE NEED TO CALL AND MAKE APPOINTMENT. VERBAL AND WRITTEN DC INSTRUCTIONS GIVEN TO PT WITH CLEAR UNDERSTANDING. PT DC'D HOME IN STABLE CONDITION AT 1345.
== END 2020-07-02 13:45 | disposition home or self-care (01) | DRG 871 ==
LOC: ER 07:27 → ICUE 10:36 → PCU 10:36 → ICUE 12:55
PROVIDERS: Emergency Medicine; Family Medicine; Nurse Practitioner Acute Care; ADMIT Internal Medicine
DX: A41.9 Sepsis, unspecified organism (principal); J69.0 Pneumonitis due to inhalation of food and vomit; R65.21 Severe sepsis with septic shock; E87.2 Acidosis; I82.402 Acute embolism and thrombosis of unspecified deep veins of left lower extremity; Z85.07 Personal history of malignant neoplasm of pancreas; G89.4 Chronic pain syndrome; J44.9 Chronic obstructive pulmonary disease, unspecified; K21.9 Gastro-esophageal reflux disease without esophagitis; E83.42 Hypomagnesemia; Z96.652 Presence of left artificial knee joint; F17.210 Nicotine dependence, cigarettes, uncomplicated; G40.409 Other generalized epilepsy and epileptic syndromes, not intractable, without status epilepticus; D64.9 Anemia, unspecified; F32.9 Major depressive disorder, single episode, unspecified
CPT/HCPCS: 36415; 51702; 70450; 71045; 80047; 80053; 80069; 81001; 82140; 82803; 82947; 83605; 83735; 84100; 84145; 84443; 85014; 85025; 85610; 87040; 87086; 93005; 93010; 96361; 96365; 96366; 96367; 96375; 96376; 97110; 97162; 97166; 97535; 99285-25; A9270; C9113; G0480; J0696; J1953; J2060; J2250; J2543; J3370; J3411; J3475; J7030; J7042; J7120

== ENCOUNTER → 2020-07-21 | Outpatient (CLI) | payer OTHER ==
[~2020-07-21] MED LIST changes: +AZIT250 PO; +LEVE500 PO; +LISINOPRIL2.5 MG PO; +MULTI VITAMIN1 EACH PO; +NEURONTIN300 MG PO; +PANT40 PO; +PROBIOTIC250 MG PO; +Ventolin/Prove6.7 GM INH; +XARELTO20 M1 PO
[2020-07-21 18:50] LABS: Percent Saturation 24.6 % (20.0-50.0)
[2020-07-21 18:54] LABS: Albumin, Blood 3.5 g/dL (3.4-5.0); Anion Gap 8 mmol/L (6-16); Blood Urea Nitrogen 6 mg/dL (8-24); Bun/Creatinine Ratio 10.3 (12.0-20.0); CO2, Blood 25 mmol/L (21-32); Chloride, Blood 109 mmol/L (98-108); Creatinine, Blood 0.58 mg/dL (0.60-1.20); Glomerular Filtration Rate >60 (60-); Glucose, Blood 75 mg/dL (70-99); Phosphorus, Blood 3.1 mg/dL (2.5-4.9); Potassium, Blood 3.3 mmol/L (3.5-5.5); Sodium, Blood 142 mmol/L (136-145)
[2020-07-21 19:03] LABS: BASOPHILS ABSOLUTE AUTO 0.06 K/mm3 (0.00-0.23); BASOPHILS PERCENT AUTO 1 % (0-2); EOSINOPHILS ABSOLUTE AUTO 0.17 K/mm3 (0.00-0.68); EOSINOPHILS PERCENT AUTO 2 % (0-6); Hemoglobin 12.8 g/dL (13.5-17.5); IMMATURE GRAN ABSOLUTE AUTO 0.03 K/mm3 (0.00-0.10); IMMATURE GRAN PERCENT AUTO 0 % (0-1); LYMPHOCYTES ABSOLUTE AUTO 2.18 K/mm3 (0.84-5.20); LYMPHOCYTES PERCENT AUTO 22 % (21-46); MONOCYTES ABSOLUTE AUTO 0.74 K/mm3 (0.16-1.47); MONOCYTES PERCENT AUTO 7 % (4-13); Mean Corpuscular HGB Conc 32.8 g/dL (31.5-36.5); Mean Corpuscular Volume 98 fL (80-100); Mean Platelet Volume 10.3 fL (9.1-12.4); NEUTROPHILS ABSOLUTE AUTO 6.82 K/mm3 (1.96-9.15); NEUTROPHILS PERCENT AUTO 68 % (41-73); Platelet Count 225 K/mm3 (150-400); RDW Coefficient Variation 14.9 % (11.7-14.2); RDW Standard Deviation 54.2 fL (35.1-46.3)
[2020-07-21 19:39] LABS: Osmolality, Serum 310 mos/KG (275-300)
== END | disposition home or self-care (01) ==
LOC: LAB SHORT 17:32 → LAB 17:32
PROVIDERS: Internal Medicine Nephrology; Nurse Practitioner Family
DX: N18.2 Chronic kidney disease, stage 2 (mild) (principal); D63.1 Anemia in chronic kidney disease; B18.2 Chronic viral hepatitis C; D50.9 Iron deficiency anemia, unspecified; E87.1 Hypo-osmolality and hyponatremia
CPT/HCPCS: 80069; 82728; 83540; 83550; 83930; 84550; 85018; 85025

== ENCOUNTER → 2020-09-24 | Outpatient (CLI) | payer OTHER ==
[~2020-09-24] MED LIST changes: +Ativan1 MG; +Depakene250 MG PO; +Klor-Con 1010 MEQ PO; +SPIRONOLACTONE25 MG PO
[2020-09-24 18:20] LABS: BASOPHILS ABSOLUTE AUTO 0.03 K/mm3 (0.00-0.23); BASOPHILS PERCENT AUTO 0 % (0-2); EOSINOPHILS ABSOLUTE AUTO 0.25 K/mm3 (0.00-0.68); EOSINOPHILS PERCENT AUTO 2 % (0-6); Hematocrit 35.8 % (37.0-53.0); Hemoglobin 11.8 g/dL (13.5-17.5); IMMATURE GRAN ABSOLUTE AUTO 0.02 K/mm3 (0.00-0.10); IMMATURE GRAN PERCENT AUTO 0 % (0-1); LYMPHOCYTES ABSOLUTE AUTO 1.74 K/mm3 (0.84-5.20); LYMPHOCYTES PERCENT AUTO 17 % (21-46); MONOCYTES ABSOLUTE AUTO 0.71 K/mm3 (0.16-1.47); MONOCYTES PERCENT AUTO 7 % (4-13); Mean Corpuscular HGB 33.5 pg (26.0-34.0); Mean Corpuscular Volume 102 fL (80-100); Mean Platelet Volume 10.2 fL (9.1-12.4); NEUTROPHILS ABSOLUTE AUTO 7.61 K/mm3 (1.96-9.15); NEUTROPHILS PERCENT AUTO 73 % (41-73); Platelet Count 131 K/mm3 (150-400); RDW Coefficient Variation 13.2 % (11.7-14.2); Red Blood Cell Count 3.52 M/mm3 (4.30-5.90); White Blood Cell Count 10.36 K/mm3 (4.00-11.30)
[2020-09-24 19:25] LABS: Alanine Aminotransfer (ALT/SGP 59 U/L (12-78); Albumin, Blood 3.6 g/dL (3.4-5.0); Albumin/Globulin Ratio 0.9 (0.8-1.8); Alk Phos 119 U/L (50-136); Anion Gap 7 mmol/L (6-16); Aspartate Aminotrans (AST/SGOT 100 U/L (12-37); Bilirubin, Total 0.5 mg/dL (0.1-1.0); Blood Urea Nitrogen 8 mg/dL (8-24); Bun/Creatinine Ratio 9.8 (12.0-20.0); CO2, Blood 26 mmol/L (21-32); Calcium, Blood 9.4 mg/dL (8.5-10.1); Chloride, Blood 107 mmol/L (98-108); Creatinine, Blood 0.82 mg/dL (0.60-1.20); Globulin, Blood 3.9 g/dL (2.2-4.0); Glomerular Filtration Rate >60 (60-); Glucose, Blood 94 mg/dL (70-99); Potassium, Blood 3.9 mmol/L (3.5-5.5); Sodium, Blood 140 mmol/L (136-145); Total Protein, Blood 7.5 g/dL (6.4-8.2)
== END | disposition home or self-care (01) ==
LOC: LAB 16:36 → LAB SHORT 16:36
PROVIDERS: Nurse Practitioner Family
DX: B18.2 Chronic viral hepatitis C (principal)
CPT/HCPCS: 80053; 83690; 85025

== ENCOUNTER → 2020-10-07 | Outpatient (CLI) | payer OTHER ==
[2020-10-07 17:44] LABS: BASOPHILS ABSOLUTE AUTO 0.07 K/mm3 (0.00-0.23); BASOPHILS PERCENT AUTO 1 % (0-2); EOSINOPHILS ABSOLUTE AUTO 0.22 K/mm3 (0.00-0.68); EOSINOPHILS PERCENT AUTO 2 % (0-6); Hematocrit 35.5 % (37.0-53.0); Hemoglobin 11.4 g/dL (13.5-17.5); IMMATURE GRAN PERCENT AUTO 1 % (0-1); LYMPHOCYTES PERCENT AUTO 16 % (21-46); MONOCYTES ABSOLUTE AUTO 0.91 K/mm3 (0.16-1.47); MONOCYTES PERCENT AUTO 9 % (4-13); Mean Corpuscular HGB Conc 32.1 g/dL (31.5-36.5); Mean Corpuscular Volume 106 fL (80-100); NEUTROPHILS ABSOLUTE AUTO 6.88 K/mm3 (1.96-9.15); NEUTROPHILS PERCENT AUTO 70 % (41-73); Platelet Count 340 K/mm3 (150-400); RDW Coefficient Variation 15.4 % (11.7-14.2); RDW Standard Deviation 59.6 fL (35.1-46.3); Red Blood Cell Count 3.35 M/mm3 (4.30-5.90); White Blood Cell Count 9.78 K/mm3 (4.00-11.30)
[2020-10-07 18:41] LABS: Alanine Aminotransfer (ALT/SGP 24 U/L (12-78); Albumin, Blood 3.7 g/dL (3.4-5.0); Albumin/Globulin Ratio 0.8 (0.8-1.8); Alk Phos 90 U/L (50-136); Anion Gap 6 mmol/L (6-16); Aspartate Aminotrans (AST/SGOT 35 U/L (12-37); Bilirubin, Total 0.6 mg/dL (0.1-1.0); Blood Urea Nitrogen 7 mg/dL (8-24); CO2, Blood 27 mmol/L (21-32); Calcium, Blood 9.1 mg/dL (8.5-10.1); Chloride, Blood 105 mmol/L (98-108); Creatinine, Blood 0.63 mg/dL (0.60-1.20); Globulin, Blood 4.8 g/dL (2.2-4.0); Glomerular Filtration Rate >60 (60-); Glucose, Blood 70 mg/dL (70-99); Potassium, Blood 4.1 mmol/L (3.5-5.5); Sodium, Blood 138 mmol/L (136-145); Total Protein, Blood 8.5 g/dL (6.4-8.2)
[2020-10-08 20:55] LABS: Percent Saturation 22.3 % (20.0-50.0)
== END | disposition home or self-care (01) ==
LOC: LAB SHORT 16:28 → LAB 16:28
PROVIDERS: Nurse Practitioner Family
DX: R10.9 Unspecified abdominal pain (principal); E83.51 Hypocalcemia; D50.9 Iron deficiency anemia, unspecified
CPT/HCPCS: 80053; 82728; 83540; 83550; 83690; 85025

== ENCOUNTER 2020-10-13 10:57 | Emergency (ER) | payer OTHER ==
[~2020-10-13] VITALS: Ht 177.8 cm; Wt 72.6 kg
[~2020-10-13 10:57] MED LIST changes: -Ativan1 MG; -Depakene250 MG PO
[2020-10-13] MEDS ORDERED: Ativan1 MG (11:22)
[2020-10-13 12:08] LABS: BASOPHILS ABSOLUTE AUTO 0.08 K/mm3 (0.00-0.23); BASOPHILS PERCENT AUTO 1 % (0-2); EOSINOPHILS ABSOLUTE AUTO 0.02 K/mm3 (0.00-0.68); EOSINOPHILS PERCENT AUTO 0 % (0-6); Hematocrit 39.1 % (37.0-53.0); Hemoglobin 12.6 g/dL (13.5-17.5); IMMATURE GRAN ABSOLUTE AUTO 0.07 K/mm3 (0.00-0.10); IMMATURE GRAN PERCENT AUTO 1 % (0-1); LYMPHOCYTES ABSOLUTE AUTO 0.39 K/mm3 (0.84-5.20); LYMPHOCYTES PERCENT AUTO 3 % (21-46); MONOCYTES ABSOLUTE AUTO 0.87 K/mm3 (0.16-1.47); MONOCYTES PERCENT AUTO 7 % (4-13); Mean Corpuscular HGB 34.1 pg (26.0-34.0); Mean Corpuscular HGB Conc 32.2 g/dL (31.5-36.5); Mean Corpuscular Volume 106 fL (80-100); Mean Platelet Volume 10.1 fL (9.1-12.4); NEUTROPHILS ABSOLUTE AUTO 10.32 K/mm3 (1.96-9.15); NEUTROPHILS PERCENT AUTO 88 % (41-73); Platelet Count 297 K/mm3 (150-400); RDW Coefficient Variation 15.8 % (11.7-14.2); RDW Standard Deviation 61.8 fL (35.1-46.3); White Blood Cell Count 11.75 K/mm3 (4.00-11.30)
[2020-10-13 12:31] LABS: Alanine Aminotransfer (ALT/SGP 35 U/L (12-78); Albumin, Blood 3.5 g/dL (3.4-5.0); Albumin/Globulin Ratio 0.7 (0.8-1.8); Alk Phos 122 U/L (50-136); Anion Gap 6 mmol/L (6-16); Aspartate Aminotrans (AST/SGOT 77 U/L (12-37); Bilirubin, Total 0.5 mg/dL (0.1-1.0); Blood Urea Nitrogen 10 mg/dL (8-24); CO2, Blood 27 mmol/L (21-32); Calcium, Blood 9.4 mg/dL (8.5-10.1); Chloride, Blood 106 mmol/L (98-108); Creatinine, Blood 0.84 mg/dL (0.60-1.20); Globulin, Blood 5.3 g/dL (2.2-4.0); Glomerular Filtration Rate >60 (60-); Glucose, Blood 107 mg/dL (70-99); Potassium, Blood 5.4 mmol/L (3.5-5.5); Sodium, Blood 139 mmol/L (136-145); Total Protein, Blood 8.8 g/dL (6.4-8.2)
[2020-10-13] MEDS ORDERED: Depakene250 MG PO (14:58)
== END 2020-10-13 15:19 | disposition home or self-care (01) ==
LOC: ER 10:57
PROVIDERS: Emergency Medicine
DX: G40.909 Epilepsy, unspecified, not intractable, without status epilepticus (principal); J44.9 Chronic obstructive pulmonary disease, unspecified; F17.210 Nicotine dependence, cigarettes, uncomplicated; Z79.01 Long term (current) use of anticoagulants; Z79.899 Other long term (current) drug therapy
CPT/HCPCS: 36415; 70450; 80053; 85025; 93005; 93010; 96365; 96366; 96375; 99285-25; J1885; J2060; Q2009

== ENCOUNTER 2021-03-08 08:26 | Emergency (ER) | payer OTHER ==
[~2021-03-08] VITALS: Ht 170.2 cm; Wt 83.9 kg
[~2021-03-08 08:26] MED LIST changes: +Ativan1 MG; +Depakene250 MG PO
[2021-03-08] MEDS ORDERED: KLOR-CON 1010 ME1 PO (08:52)
[2021-03-08] MEDS ORDERED: NEURONTIN300 MG PO (08:52)
[2021-03-08] MEDS ORDERED: PANTOPRAZOLE SO20 M3 PO (08:52)
[2021-03-08 08:55] LABS: Calcium, Ionized (POC) 1.04 mmol/L (1.10-1.46); Chloride (POC) 98 mmol/L (98-108); Creatinine (POC) 0.8 mg/dL (0.8-1.3); Glucose (ISTAT POC) 106 mg/dL (70-99); Hemoglobin (POC) 17.3 g/dL (13.5-17.5); Potassium (POC) 3.8 mmol/L (3.5-5.5); Sodium (POC) 136 mmol/L (135-148); Total CO2 (POC) 22 mmol/L (21-32)
[2021-03-08 09:12] LABS: Ethanol (Alcohol), Blood, Med <3 mg/dL; Valproic Acid 27.9 ug/mL (50.0-100.0)
[2021-03-08 09:13] LABS: Alanine Aminotransfer (ALT/SGP 46 U/L (12-78); Albumin, Blood 3.6 g/dL (3.4-5.0); Albumin/Globulin Ratio 0.7 (0.8-1.8); Alk Phos 81 U/L (50-136); Anion Gap 13 mmol/L (6-16); Aspartate Aminotrans (AST/SGOT 51 U/L (12-37); BASOPHILS ABSOLUTE AUTO 0.07 K/mm3 (0.00-0.23); BASOPHILS PERCENT AUTO 1 % (0-2); Bilirubin, Total 0.6 mg/dL (0.1-1.0); Blood Urea Nitrogen 6 mg/dL (8-24); Bun/Creatinine Ratio 7.7 (12.0-20.0); CO2, Blood 23 mmol/L (21-32); Calcium, Blood 9.1 mg/dL (8.5-10.1); Chloride, Blood 100 mmol/L (98-108); Creatinine, Blood 0.78 mg/dL (0.60-1.20); EOSINOPHILS ABSOLUTE AUTO 0.03 K/mm3 (0.00-0.68); EOSINOPHILS PERCENT AUTO 0 % (0-6); Globulin, Blood 5.2 g/dL (2.2-4.0); Glomerular Filtration Rate >60 (60-); Glucose, Blood 107 mg/dL (70-99); Hematocrit 46.4 % (37.0-53.0); Hemoglobin 15.8 g/dL (13.5-17.5); IMMATURE GRAN ABSOLUTE AUTO 0.04 K/mm3 (0.00-0.10); IMMATURE GRAN PERCENT AUTO 0 % (0-1); LYMPHOCYTES ABSOLUTE AUTO 0.54 K/mm3 (0.84-5.20); LYMPHOCYTES PERCENT AUTO 4 % (21-46); MONOCYTES ABSOLUTE AUTO 0.89 K/mm3 (0.16-1.47); MONOCYTES PERCENT AUTO 6 % (4-13); Mean Corpuscular HGB Conc 34.1 g/dL (31.5-36.5); Mean Corpuscular Volume 103 fL (80-100); Mean Platelet Volume 9.6 fL (9.1-12.4); NEUTROPHILS ABSOLUTE AUTO 12.59 K/mm3 (1.96-9.15); NEUTROPHILS PERCENT AUTO 89 % (41-73); Platelet Count 194 K/mm3 (150-400); Potassium, Blood 3.7 mmol/L (3.5-5.5); RDW Coefficient Variation 13.4 % (11.7-14.2); RDW Standard Deviation 51.4 fL (35.1-46.3); Red Blood Cell Count 4.52 M/mm3 (4.30-5.90); Sodium, Blood 136 mmol/L (136-145); Total Protein, Blood 8.8 g/dL (6.4-8.2); White Blood Cell Count 14.16 K/mm3 (4.00-11.30)
== END 2021-03-08 10:15 | disposition home or self-care (01) ==
LOC: ER 08:26
PROVIDERS: Emergency Medicine
DX: F10.139 Alcohol abuse with withdrawal, unspecified (principal); R56.9 Unspecified convulsions; F17.200 Nicotine dependence, unspecified, uncomplicated; Z79.01 Long term (current) use of anticoagulants; Z79.899 Other long term (current) drug therapy
CPT/HCPCS: 36415; 70450; 80047; 80053; 80164; 83735; 85014; 85025; 99285-25; A9270; A9270-GY; G0480; J7120